=== PATIENT | female | born 1990 | race African-American/Black ===

== ENCOUNTER 2017-03-07 08:11 | Emergency (ER) | payer MEDICAID ==
[~2017-03-07] VITALS: Ht 162.6 cm; Wt 72.0 kg
[~2017-03-07 08:11] MED LIST: FERR324T4 PO
[2017-03-07 08:15] VITALS: BP 166/92; PULSE 91; RESP 16; TEMP 98.6; O2SAT 100
--- NOTE | 2017-03-07 08:21 | PD ---
HPI . possible FB in left ear Chief Complaint: ENT Complaint Time Seen by Provider: 08:21 Travel History International Travel<30 days: No Contact w/Intl Traveler<30days: No Traveled to known affect area: No History of Present Illness HPI 26 yr old female here stating she thinks she has had the backing of an earring stuck in her ear for 3 mts. She tells me it occasionally causes pain. She denies any drainage, cold or flu like symptoms. PFSH Past Medical History Autoimmune Disease: No Blood Disorders: No Anxiety: No Depression: No Cardiovascular Problems: No Diminished Hearing: No Gastrointestinal Disorders: No Genitourinary: No Hypertension: Yes (WHEN SHE WAS WITH HER FIRST BABY) Musculoskeletal: No Neurologic: No Psychiatric: No Respiratory: No Immunizations Current: No Sickle Cell Disease: Yes ?: : 2 Para: 1 Past Surgical History Other Surgery: No Social History Alcohol Use: No Tobacco Use: No Substance Use: No Allergies-Medications (Allergen,Severity, Reaction): Coded Allergies: No Known Allergies (Verified , 03/07/17) Reported Meds & Prescriptions Reported Meds & Active Scripts Active No Active Prescriptions or Reported Medications Review of Systems General / Constitutional: No: Fever Eyes: No: Visual changes HENT: Positive: Other (possible fb in ear), No: Headaches Cardiovascular: No: Chest Pain or Discomfort Respiratory: No: Shortness of Breath Gastrointestinal: No: Abdominal Pain Genitourinary: No: Dysuria Musculoskeletal: No: Pain Skin: No Rash Neurologic: No: Weakness Psychiatric: No: Depression Endocrine: No: Polydipsia Hematologic/Lymphatic: No: Easy Bruising Physical Exam Narrative GENERAL: AAO x 3, no acute distress, Well-nourished, well-developed patient. SKIN: Warm and dry. No visible rashes or bruising. HEAD: Normocephalic and atraumatic. EYES: No scleral icterus. No injection or drainage. EOM intact, PERRLA ENT: No nasal drainage noted. Mucous membranes pink. Airway patent. Right TM with mild cerumen, left TM no gross abnormality. There is no visualized foreign body on examination. No tenderness to palpation of the tragus bilaterally. NECK: Supple, trachea midline. No JVD. No lymphadenopathy CARDIOVASCULAR: Regular rate and rhythm without murmurs, gallops, or rubs. RESPIRATORY: Breath sounds equal bilaterally. No accessory muscle use. No rhonchi or rales. GASTROINTESTINAL: Visual inspection is normal EXTREMITIES: No cyanosis or edema. BACK: No obvious deformity. NEURO: CN II-12 intact, PSYCH: AAO x 3, normal affect. Data Data Last Documented VS Vital Signs Date Time Temp Pulse Resp B/P Pulse Ox O2 Delivery O2 Flow Rate FiO2 03/07/17 08:15 98.6 91 16 166/92 100 Room Air MDM Medical Decision Making Medical Screen Exam Complete: Yes Emergency Medical Condition: Yes Medical Record Reviewed: Yes Differential Diagnosis fb in ear, OM, OE, Narrative Course 26-year-old female here with possible foreign body in her left ear. I've done a thorough examination and there is no gross abnormalities with her bilateral ears. I've explained this to her and recommend she follow-up with her primary care provider. We briefly discussed referral to hearings reporter. Patient verbalized understanding of instructions, questions were answered, and thanked me for their care. I advised them if their condition worsens, please return to the nearest emergency room for further care. Diagnosis Primary Impression: Irritation of left ear Patient Instructions: General Instructions Additional Instructions: I could not see any foreign body in your ear. Please follow up with your primary care provider. You may benefit from an ear, nose, and throat consult. Med/Other Pt SpecificInfo: No Change to Meds Scripts No Active Prescriptions or Reported Meds Disposition: 01 DISCHARGE HOME Condition: Stable Leslee Elizondo Mar 07, 2017 08:21
[2017-03-07 08:33] VITALS: BP 140/81; TEMP 98
[2017-03-08] MEDS ORDERED: TRICTAB PO (18:16)
[2017-03-14] MEDS ORDERED: AUGM875T3 PO (11:52)
== END 2017-03-07 08:40 | disposition home or self-care (01) ==
LOC: NEPK 08:36
DX: H92.02 Otalgia, left ear (principal); I10 Essential (primary) hypertension
CPT/HCPCS: 99281

== ENCOUNTER 2017-03-17 12:40 | Emergency (ER) | payer MEDICAID ==
[~2017-03-17] VITALS: Ht 162.6 cm; Wt 70.0 kg
[~2017-03-17 12:40] MED LIST changes: +AUGM875T3 PO; -FERR324T4 PO; +TRICTAB PO
[2017-03-17 12:44] VITALS: BP 149/83; PULSE 117; RESP 18; TEMP 99.4; O2SAT 97
--- NOTE | 2017-03-17 13:00 | PD ---
HPI Chief Complaint: GI Complaint Time Seen by Provider: 13:00 Travel History International Travel<30 days: No Contact w/Intl Traveler<30days: No Traveled to known affect area: No History of Present Illness HPI 26-year-old Afro-[place] female presents the emergency department with several day history of abdominal discomfort and nausea and vomiting after eating. Patient's last MRSA. Was January 29 and she feels she is probably 6-7 weeks . Patient describes her pain is generalized in the abdomen with localized right upper quadrant tenderness. She denies diarrhea or constipation. She denies urinary symptoms although her urine is darker than normal. She denies pain with urination. She denies vaginal symptoms of discharge or spotting. She has no CVA tenderness. She denies fever, chills, or chest pain or shortness of breath. This is her third child. She states the pain comes and goes and is worse after she eats. She has no history of abdominal surgery prior to this visit. She has no known drug allergies. PFSH Past Medical History Medical History: Denies Significant Hx Autoimmune Disease: No Blood Disorders: No Anxiety: No Depression: No Cardiovascular Problems: No Diminished Hearing: No Gastrointestinal Disorders: No Genitourinary: No Hypertension: Yes (WHEN SHE WAS WITH HER FIRST BABY) Musculoskeletal: No Neurologic: No Psychiatric: No Respiratory: No Immunizations Current: No Sickle Cell Disease: Yes ?: LMP: 01/29/17 : 2 Para: 1 Past Surgical History Surgical History: No Previous Surgery Other Surgery: No Social History Alcohol Use: No Tobacco Use: No Substance Use: No Allergies-Medications (Allergen,Severity, Reaction): Coded Allergies: No Known Allergies (Verified , 03/17/17) Reported Meds & Prescriptions Reported Meds & Active Scripts Active Augmentin (Amoxicillin-Clavulanate) 875-125 Mg Tab 1 Tab PO BID ( Vit-Ferrous Fumarate) 1 Tab Tab 1 Tab PO DAILY Review of Systems Except as stated in HPI: all other systems reviewed are Neg General / Constitutional: No: Fever, Chills Eyes: No: Visual changes HENT: No: Headaches Cardiovascular: No: Chest Pain or Discomfort Respiratory: No: Shortness of Breath Gastrointestinal: Positive: Nausea, Vomiting, Abdominal Pain, Loss of Appetite , No: Diarrhea, Constipation Genitourinary: Positive: Decreased Urinary Output, No: Urgency, Frequency, Dysuria, Pelvic Pain, Flank Pain, Discharge, Vaginal Bleeding Musculoskeletal: No: Pain Skin: No Rash Neurologic: No: Weakness Psychiatric: No: Depression Endocrine: No: Polydipsia Hematologic/Lymphatic: No: Easy Bruising Physical Exam Narrative GENERAL: Patient appears in no acute distress. SKIN: Warm and dry. Normal color. Normal turgor. HEAD: Atraumatic. Normocephalic. EYES: Pupils equal and round. No scleral icterus. No injection or drainage. ENT: No nasal bleeding or discharge. Mucous membranes pink and moist. Pharynx is clear. Airway is patent NECK: Trachea midline. Supple nontender. CARDIOVASCULAR: Regular rate and rhythm. RESPIRATORY: No accessory muscle use. Clear to auscultation. Breath sounds equal bilaterally. GASTROINTESTINAL: Abdomen soft, mild to moderate right upper quadrant tenderness without guarding, nondistended. No CVA tenderness. No right lower abdominal tenderness or rebound. Hepatic and splenic margins not palpable. MUSCULOSKELETAL: Extremities without clubbing, cyanosis, or edema. No obvious deformities. NEUROLOGICAL: Awake and alert. No obvious cranial nerve deficits. Motor grossly within normal limits. Five out of 5 muscle strength in the arms and legs. Normal speech. PSYCHIATRIC: Appropriate mood and affect; insight and judgment normal. Data Data Last Documented VS Vital Signs Date Time Temp Pulse Resp B/P Pulse Ox O2 Delivery O2 Flow Rate FiO2 03/17/17 12:44 99.4 117 18 149/83 97 Room Air Orders Complete Blood Count With Diff (03/17/17 13:06) Comprehensive Metabolic Panel (03/17/17 13:06) Lipase (03/17/17 13:06) Urinalysis - C+S If Indicated (03/17/17 13:06) Us Abdomen Gallbladder (03/17/17 ) Iv Access Insert/Monitor (03/17/17 13:06) Ecg Monitoring (03/17/17 13:06) Oximetry (03/17/17 13:06) NPO (03/17/17 13:06) Ondansetron Inj (Zofran Inj) (03/17/17 13:15) Sodium Chlor 0.9% 1000 Ml Inj (Ns 1000 M (03/17/17 13:06) Sodium Chloride 0.9% Flush (Ns Flush) (03/17/17 13:15) Us Pelvis (Ques Preg/Ectopic) (03/17/17 13:06) Beta Hcg (Quant/Titer) (03/17/17 13:06) Urine Culture (03/17/17 13:00) Ceftriaxone Inj (Rocephin Inj) (03/17/17 14:00) Labs Laboratory Tests Test 03/17/17 13:00 White Blood Count 9.6 TH/MM3 Red Blood Count 4.29 MIL/MM3 Hemoglobin 12.6 GM/DL Hematocrit 37.4 % Mean Corpuscular Volume 87.2 FL Mean Corpuscular Hemoglobin 29.4 PG Mean Corpuscular Hemoglobin 33.8 % Concent Red Cell Distribution Width 15.1 % Platelet Count 273 TH/MM3 Mean Platelet Volume 7.8 FL Neutrophils (%) (Auto) 74.6 % Lymphocytes (%) (Auto) 13.0 % Monocytes (%) (Auto) 11.9 % Eosinophils (%) (Auto) 0.3 % Basophils (%) (Auto) 0.2 % Neutrophils # (Auto) 7.2 TH/MM3 Lymphocytes # (Auto) 1.3 TH/MM3 Monocytes # (Auto) 1.1 TH/MM3 Eosinophils # (Auto) 0.0 TH/MM3 Basophils # (Auto) 0.0 TH/MM3 CBC Comment DIFF FINAL Differential Comment Urine Color DARK-YELLOW Urine Turbidity HAZY Urine pH 6.5 Urine Specific [place] 1.043 Urine Protein 100 mg/dL Urine Glucose (UA) TRACE mg/dL Urine Ketones 10 mg/dL Urine Occult Blood NEG Urine Nitrite NEG Urine Bilirubin NEG Urine Urobilinogen 8.0 MG/DL Urine Leukocyte Esterase MOD Urine RBC 8 /hpf Urine WBC 25 /hpf Urine Squamous Epithelial 28 /hpf Cells Urine Mucus MANY /lpf Microscopic Urinalysis Comment CULTURE INDICATED Sodium Level 135 MEQ/L Potassium Level 3.5 MEQ/L Chloride Level 105 MEQ/L Carbon Dioxide Level 18.5 MEQ/L Anion Gap 12 MEQ/L Blood Urea Nitrogen 9 MG/DL Creatinine 0.63 MG/DL Estimat Glomerular Filtration 140 ML/MIN Rate Random Glucose 76 MG/DL Calcium Level 9.3 MG/DL Total Bilirubin 0.3 MG/DL Aspartate Amino Transf 33 U/L (AST/SGOT) Alanine Aminotransferase 34 U/L (ALT/SGPT) Alkaline Phosphatase 78 U/L Total Protein 7.9 GM/DL Albumin 3.6 GM/DL Lipase 114 U/L Human Chorionic Gonadotropin, [address] MIU/ML Quant MDM Medical Decision Making Medical Screen Exam Complete: Yes Emergency Medical Condition: Yes Differential Diagnosis Emesis gravidarum. Urinary tract infection. Gallbladder colic. Narrative Course Patient is medically stable at time of exam. Labs ordered including CBC, CMP, serum hCG and urinalysis. Ultrasound of the pelvis and gallbladder are ordered. CBC is unremarkable. CMP shows slightly low sodium of 135. Otherwise unremarkable. HCG quantitative is 87,912 Urinalysis shows signs of urinary tract infection with moderate leukocyte esterase, 25 WBCs per high-power field and many mucus. Urine is cultured. Patient is given 1000 mg Rocephin IV. Patient is given 1000 miles normal saline bolus as well as 4 mg Zofran IV. Uterus ultrasound shows an 8 week viable intrauterine . Gallbladder ultrasound is unremarkable. Patient will be treated with Keflex 500 mg 3 times a day 7 days per Patient will be given Zofran 4 mg one every 6 hours when necessary nausea vomiting #15. 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 Diagnosis Primary Impression: UTI (urinary tract infection) during Qualified Code: O23.41 - UTI (urinary tract infection) during , first trimester Additional Impression: Nausea and vomiting Qualified Code: R11.2 - Non-intractable vomiting with nausea, unspecified vomiting type Referrals: Crisis Therapist Patient Instructions: Acute Nausea and Vomiting (ED), Dysuria (ED), First Trimester (ED), General Instructions Additional Instructions: CBC is unremarkable. CMP shows slightly low sodium of 135. Otherwise unremarkable. HCG quantitative is 87,912 Urinalysis shows signs of urinary tract infection with moderate leukocyte esterase, 25 WBCs per high-power field and many mucus. Urine is cultured. Patient is given 1000 mg Rocephin IV. Patient is given 1000 miles normal saline bolus as well as 4 mg Zofran IV. Uterus ultrasound shows an 8 week viable intrauterine . Gallbladder ultrasound is unremarkable. Patient will be treated with Keflex 500 mg 3 times a day 7 days per Patient will be given Zofran 4 mg one every 6 hours when necessary nausea vomiting #15. 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 Med/Other Pt SpecificInfo: Prescription(s) given Scripts Ondansetron Odt (Zofran Odt)4 Mg Tab4 Mg SL Q6HR PRN (Nausea/Vomiting) #15 TAB Prov:Laura Hylton DO 03/17/17 Cephalexin (Keflex)500 Mg Vpy147 Mg PO Q8H #21 CAP Prov:HyltonLaura isaacs 03/17/17 Disposition: 01 DISCHARGE HOME Condition: Stable Reynaldo Mittal Mar 17, 2017 13:00
[2017-03-17] MEDS ORDERED: SODIUM CHLOR 0.9% 1000 ML INJ 1,000 ML IV SCH (13:06)
[2017-03-17] MEDS ORDERED: SODIUM CHLORIDE 0.9% FLUSH 10 ML FLUSH IV FLUSH PRN (13:15)
[2017-03-17] MEDS ORDERED: ONDANSETRON HCL 4 MG/2 ML VIAL IVP ONE (13:15)
[2017-03-17 13:34] LABS: AUTOMATED NEUTROPHIL # 7.2 TH/MM3 (1.8-7.7); BASOPHIL % 0.2 % (0.0-2.0); EOSINOPHIL % 0.3 % (0.0-4.0); HEMATOCRIT 37.4 % (35.0-46.0); HEMO FLAGS DIFF FINAL; LYMPHOCYTE # 1.3 TH/MM3 (1.0-4.8); MEAN CELL VOLUME 87.2 FL (80.0-100.0); MEAN CORPUSCULAR HEMOGLOBIN 29.4 PG (27.0-34.0); MEAN CORPUSCULAR HGB CONC 33.8 % (32.0-36.0); MONO % 11.9 % (0.0-8.0); NEUT % 74.6 % (16.0-70.0); PLATELET COUNT 273 TH/MM3 (150-450); RED BLOOD COUNT 4.29 MIL/MM3 (4.00-5.30); RED CELL DISTRIBUTION WIDTH 15.1 % (11.6-17.2); WHITE BLOOD COUNT 9.6 TH/MM3 (4.0-11.0)
[2017-03-17 13:39] LABS: ALT (GPT) 34 U/L (10-53); ANION GAP 12 MEQ/L (5-15); AST (GOT) 33 U/L (15-37); BICARBONATE 18.5 MEQ/L (21.0-32.0); BLOOD UREA NITROGEN 9 MG/DL (7-18); BLOOD, URINE NEG (NEG); CHLORIDE 105 MEQ/L (98-107); COMMENT (UR) CULTURE INDICATED; CULTURE IF INDICATED CULTURE INDICATED; GLOMERULAR FILTRATION RATE 140 ML/MIN (>89); GLUCOSE,URINE TRACE mg/dL (NEG); KETONE, URINE 10 mg/dL (NEG); MUCUS URINE MANY /lpf (OCC); NITRITE,URINE NEG (NEG); PH, URINE 6.5 (5.0-8.5); POTASSIUM 3.5 MEQ/L (3.5-5.1); SODIUM (NA) 135 MEQ/L (136-145); SQUAMOUS EPITHELIAL CELL URINE 28 /hpf (0-5); URINE COLOR DARK-YELLOW (YELLW/STRAW)
[2017-03-17 13:56] LABS: ALKALINE PHOSPHATASE 78 U/L (45-117); BETA HCG QUANT 87912 MIU/ML (0-5); TOTAL BILIRUBIN ADULT 0.3 MG/DL (0.2-1.0)
[2017-03-17] MEDS ORDERED: cefTRIAXone INJ 1,000 MG in SODIUM CHLORIDE 0.9% INJ 100 ML IV ONE (14:00)
--- NOTE | 2017-03-17 14:04 | RADRPT ---
EXAM DATE/TIME: 03/17/2017 13:16 [facility] COMPARISON: No previous studies available for comparison. INDICATIONS : Right upper quandrant pain. MEDICAL HISTORY : Gestational hypertension. Nausea. Vomiting. SURGICAL HISTORY : None. ENCOUNTER: Initial ACUITY: 1 day PAIN SCORE: 0/10 LOCATION: Right upper quadrant MEASUREMENTS: LIVER: 14.7 cm length COMMON DUCT: Non-visualized RIGHT KIDNEY: 10.8 x 3.5 x 3.2 cm FINDINGS: LIVER: Normal echotexture without focal lesion or ductal dilatation. COMMON DUCT: No intraluminal mass or stone visualized. GALLBLADDER: Contains no stones, demonstrates no wall thickening or pericholecystic fluid. PANCREAS: The visualized portions are within normal limits. RIGHT KIDNEY: No evidence of hydronephrosis, stone, or mass. CONCLUSION: Negative for source of pain. Zechariah Rosas MD FACR on March 17, 2017 at 14:02 Board Certified Radiologist. This report was verified electronically.
--- NOTE | 2017-03-17 14:12 | RADRPT ---
EXAM DATE/TIME: 03/17/2017 13:25 [facility] COMPARISON: No previous studies available for comparison. INDICATIONS : Pelvic pain. LAB(S): Beta-hC MEDICAL HISTORY : Gestational hypertension. Nausea. Vomiting. SURGICAL HISTORY : None. ENCOUNTER: Initial ACUITY: 1 day PAIN SCORE: 3/10 LOCATION: Bilateral pelvis MEASUREMENTS: UTERUS: 9.9 x 8.2 x 7.0 cm ENDOMETRIAL STRIPE: 1 mm RIGHT OVARY: 2.6 x 1.5 x 1.9 cm LEFT OVARY: 4.4 x 3.5 x 3.5 cm CROWN RUMP LENGTH: 1.6 = 8 WKS 0 DAYS FHR: 157 BPM FINDINGS: UTERUS: There is 8 viable intrauterine corresponding to 8 week gestation. Small apparent fibroid i s noted. RIGHT OVARY: Ovary contains no mass or significant cystic lesion. LEFT OVARY: There are 2 cysts in the left ovary largest measuring 3 cm. MISCELLANEOUS: No free fluid. CONCLUSION: Viable intrauterine 8 weeks gestation. Zechariah Rosas MD FACR on March 17, 2017 at 14:08 Board Certified Radiologist. This report was verified electronically.
[2017-03-17] MEDS ORDERED: ZOFR4TAB3 SL (14:34)
[2017-03-17] MEDS ORDERED: CEPH-460 PO (14:34)
[2017-03-17 15:38] VITALS: BP 124/78; PULSE 100; RESP 18; O2SAT 97
== END 2017-03-17 17:51 | disposition home or self-care (01) ==
LOC: NEPE 12:40
DX: O23.41 Unspecified infection of urinary tract in pregnancy, first trimester (principal); O21.9 Vomiting of pregnancy, unspecified; Z3A.08 8 weeks gestation of pregnancy
CPT/HCPCS: 76700; 76705; 80053; 81001; 83690; 84702; 85025; 87086; 96361; 96365; 96375; 99285; J0696; J2405; J7030

== ENCOUNTER → 2017-05-15 | Outpatient (CLI) | payer MEDICAID ==
[~2017-05-15] MED LIST changes: -AUGM875T3 PO
== END ==
LOC: HPND 10:49
PROVIDERS: ATTEND Family Medicine
DX: Z36 Encounter for antenatal screening of mother (principal); Z3A.10 10 weeks gestation of pregnancy
CPT/HCPCS: 76805

== ENCOUNTER 2017-08-31 17:32 | Emergency (ER) | payer MEDICAID ==
[~2017-08-31 17:32] MED LIST changes: +CEPH-460 PO
--- NOTE | 2017-08-31 18:38 | PD ---
HPI Chief Complaint abdominal pain; concern for contractions Date Seen: Aug 31, 2017 Time Seen: 18:15 Travel History International Travel<30 Days: No Contact w/Intl Traveler<30Days: No History of Present Illness HPI Ms. García is a 26 yo at 32 1/7 weeks (PRANAY 10/25/2017 using first ) who presents with complaint of lower abdominal pain associated with lower back pain. Patient reports that her pain has been present since last night; she describes it as intermittent pains lasting 5 minutes at a time. Pains are in lower abdominal area and occur approximately every 1015 minutes. Patient thinks that these pains have been getting stronger since last night. Patient reports normal movement. Patient does not report any vaginal bleeding or vaginal discharge. Patient does not report any urinary frequency or pain with urination in association with her symptoms. Patient does not report any fevers. No chest pain, shortness of breath, nausea/vomiting, or abnormal bowel movements. Patient reports benign course. Per EMR review, patient last saw Dr. Verdugo at 29 weeks gestation; patient given Keflex for suggested UTI on dipstick urinalysis. Patient had normal ultrasound at 22 weeks gestation. labs reviewed: O + blood. No concern for anemia. No concern for bloodborne infectious diseases. GC/C negative. Weeks Gestation: 32 Para: 2 : 3 History Past Medical History Medical History: Denies Significant Hx Obstetric History Obstetric History Past Surgical History Surgical History: No Previous Surgery Family History Family History: Negative Social History Alcohol Use: No Tobacco Use: No Substance Abuse: No Allergies-Medications (Allergen,Severity, Reaction): Coded Allergies: No Known Allergies (Verified Adverse Reaction, Unknown, 08/15/17) Home Meds Active Scripts Cephalexin (Keflex) 500 Mg Capsule, 500 MG PO TID for Infection, #21 CAP 0 Refills Prov:Gary Verdugo MD, R3 08/15/17 Vit-Ferrous Fumarate () 1 Tab Tab, 1 TAB PO DAILY for Nutritional Supplement, #30 TAB 8 Refills Prov:Franco Iyer MD 03/08/17 Review of Systems General / Constitutional: No: Fever, Chills Eyes: No: Blurred Vision HENT: No: Headaches Cardiovascular: No: Chest Pain or Discomfort Respiratory: No: Short of Breath Gastrointestinal: Abdominal Pain, No: Nausea, Vomiting Genitourinary: No: Urgency, Frequency Skin: No Rash, No Itching Neurologic: No: Weakness, Dizziness Psychiatric: No: Anxiety, Depression, Suicidal Ideations Physical Exam BP 137/94 HR 94 T99.4F R 16 Narrative GENERAL: Well-nourished, well-developed patient. SKIN: Warm and dry. HEAD: Normocephalic and atraumatic. EYES: No scleral icterus. No injection or drainage. CARDIOVASCULAR: Regular rate and rhythm without murmurs. Normal perfusion RESPIRATORY: CTAB; normal rate ABDOMEN/GI: Abdomen soft, non-tender, bowel sounds present, no rebound, no guarding Gravid EXTREMITIES: No cyanosis or edema. NEUROLOGICAL: Awake and alert. Motor and sensory function grossly within normal limits GENITOURINARY: per nursing staff External Genitalia: intact and normal in appearance Cervix: closed, thick, long Dilatation: o Effacement: 0% Station: -3 Membranes: Intact Uterine Contractions: None FHT's: Category: 1 Baseline: 150 Reactive: Y Variability: Moderate Decels: None MDM Medical Record Reviewed: Yes Narrative Course / MDM 26 yo at 32 1/7 weeks (PRANAY 10/25/2017 using first US) who presents with complaint of lower abdominal pain associated with lower back pain. -Category 1 rhythm -Cervix closed, non-effaced, -2 station -No contractions on CTG -Dipstick UA with slight leukocyte esterase; not suspicious for UTI -Mild BP elevation- BP 133/97 Plan: -Discussed with patient that due to lack of contractions on monitoring or cervical dilation, she was likely not in labor at this time. Patient's reassuring urinalysis was also suggestive that her abdominal pain is likely due to ligamentous strains/other musculoskeletal etiology. Recommended to patient discharge home and follow-up with PCP Dr. Iyre -Will send Dr. Iyer communication regarding her visit here so that he can follow-up as needed -Patient instructed to return to OB ED with any worsening or nonresolving pain; patient also counselled regarding rest and fluid hydration at home Diagnosis Diagnosis: Primary Impression: Abdominal pain affecting Additional Impression: 32 weeks gestation of Disposition: 01 DISCHARGE HOME Condition: Stable Patient Instructions: Abdominal Pain in (ED), General Instructions, Early Labor Signs (ED) Edmond Stephen MD, R3 Aug 31, 2017 18:38
== END 2017-08-31 19:17 | disposition home or self-care (01) ==
LOC: HOBED 17:32
DX: O26.893 Other specified pregnancy related conditions, third trimester (principal); R10.9 Unspecified abdominal pain; Z3A.32 32 weeks gestation of pregnancy
CPT/HCPCS: 59025

== ENCOUNTER 2017-09-19 10:45 | Inpatient (IN) | payer MEDICAID ==
[~2017-09-19] VITALS: Ht 149.9 cm; Wt 73.0 kg
[2017-09-19] VITALS (41 sets, daily range): BP systolic 135–167; BP diastolic 81–115; PULSE 71–100; RESP 16–19; TEMP 98.2–98.7
--- NOTE | 2017-09-19 11:26 | PD ---
HPI Chief Complaint abdominal pain Date Seen: Sep 19, 2017 Time Seen: 11:12 Travel History International Travel<30 Days: No Contact w/Intl Traveler<30Days: No History of Present Illness HPI 26 y/o at 34/2 weeks presents with abdominal pain/cramping this morning. She states around 7-8am this morning, felt some cramping in her groin. She also reports some decreased movement last night as well, but improved this morning. Denies any vaginal bleeding, loss of fluids, contractions. Otherwise, reports occasional headache, but no other symptoms. Describes the pain as intermittent, comes and goes. Denies any changes in vision , RUQ pain, dysuria, leg pain/swelling, chest pain, SOB. No problems during this . Weeks Gestation: 34 Para: 3 : 4 History Past Medical History Medical History: Denies Significant Hx Obstetric History Obstetric History at 39w 2013- at 40w 2016- at 40w Past Surgical History Surgical History: No Previous Surgery Family History Family History: Negative Social History Alcohol Use: No Tobacco Use: No Substance Abuse: No Allergies-Medications (Allergen,Severity, Reaction): Coded Allergies: No Known Allergies (Verified Adverse Reaction, Unknown, 08/15/17) Home Meds Active Scripts Cephalexin (Keflex) 500 Mg Capsule, 500 MG PO TID for Infection, #21 CAP 0 Refills Prov:Gary Verdugo MD, R3 08/15/17 Vit-Ferrous Fumarate () 1 Tab Tab, 1 TAB PO DAILY for Nutritional Supplement, #30 TAB 8 Refills Prov:Franco Iyer MD 03/08/17 Review of Systems General / Constitutional: Weight Gain, No: Fever, Weight Loss, Chills Eyes: No: Blurred Vision, Visual changes HENT: Headaches, No: Lightheadedness Cardiovascular: No: Irregular Rhythm, Chest Pain or Discomfort, Palpitations Respiratory: No: Cough, Short of Breath Gastrointestinal: No: Nausea, Vomiting, Diarrhea, Abdominal Pain Genitourinary: Pelvic Pain, No: Urgency, Frequency, Dysuria, Discharge, Vaginal Bleeding Musculoskeletal: No: Limited ROM, Weakness, Cramping Skin: No Rash, No Itching Neurologic: No: Weakness, Dizziness, Syncope Psychiatric: No: Anxiety, Depression Physical Exam Narrative GENERAL: Well-nourished, well-developed patient. SKIN: Warm and dry. HEAD: Normocephalic and atraumatic. EYES: No scleral icterus. No injection or drainage. ENT: No nasal drainage noted. Mucous membranes pink. Airway patent. NECK: Supple, trachea midline. No JVD. CARDIOVASCULAR: Regular rate and rhythm without murmurs, gallops, or rubs. RESPIRATORY: Breath sounds equal bilaterally. No accessory muscle use. ABDOMEN/GI: Abdomen soft, non-tender, bowel sounds present, no rebound, no guarding Gravid to 34 weeks size GENITOURINARY: External Genitalia: intact and normal in appearance Cervix: thick,high Dilatation: 0 Effacement: 0 Station: -3 Presentation: vertex Membranes: intact Uterine Contractions: none FHT's: Category: 1 Baseline: 150 Reactive: yes Variability: moderate Decels: 1 early EXTREMITIES: No cyanosis or edema. BACK: Nontender without obvious deformity. No CVA tenderness. NEUROLOGICAL: Awake and alert. Motor and sensory grossly within normal limits. Five out of 5 muscle strength in all muscle groups. Normal speech. Data Data Vital Signs Reviewed: Yes Orders Orders Vital Signs (Adult) .ON ADMISSION (09/19/17 11:14) ^ Labor Status (09/19/17 11:14) ^ Non Stress Test (09/19/17 11:14) Urinalysis - C+S If Indicated (09/19/17 11:15) Cbc No Diff, Includes Plts (09/19/17 11:15) Comprehensive Metabolic Panel (09/19/17 11:15) Uric Acid (09/19/17 11:15) Ldh Serum (09/19/17 11:15) Creatinine, Random Urine (09/19/17 11:15) [facility] Medical Record Reviewed: Yes Interpretation(s) 26 y/o at 34/2 weeks presents with abdominal cramping. Category 1 FHT Cervical exam: 0/0/-3 BP 152/96...147/91 Urine dipstick >300 protein -Monitor BPs -Labs for CBC, CMP, LDH, uric acid -UA & urine protein/cr ratio Narrative Course / MDM Pt with continued elevation of BPs, up to 164/99. Urine protein 300, Plts 252, LDH 231, uric acid 5.3 Urine protein/cr ratio pending 1) Hypertensin in 3rd trimester -Admit to antepartum -Start Mg infusion, may need IV labetalol for continued HTN -Ultrasound with BPP -24 hour urine protein/creatinine -Steroids for lung maturity -Continuous FHT Diagnosis Diagnosis: Primary Impression: Hypertension affecting in third trimester Franco Iyer MD Sep 19, 2017 11:26
[2017-09-19 12:08] LABS: HEMATOCRIT 31.9 % (35.0-46.0); HEMOGLOBIN 10.8 GM/DL (11.6-15.3); MEAN CELL VOLUME 83.2 FL (80.0-100.0); MEAN CORPUSCULAR HEMOGLOBIN 28.1 PG (27.0-34.0); MEAN CORPUSCULAR HGB CONC 33.8 % (32.0-36.0); MEAN PLATELET VOLUME 8.5 FL (7.0-11.0); PLATELET COUNT 252 TH/MM3 (150-450); RED BLOOD COUNT 3.84 MIL/MM3 (4.00-5.30); RED CELL DISTRIBUTION WIDTH 14.1 % (11.6-17.2)
[2017-09-19 12:16] LABS: BACTERIA, URINE OCC /hpf; BLOOD, URINE SMALL (NEG); GLUCOSE,URINE NEG (NEG); HYALINE CAST, URINE 2 /lpf (RARE); KETONE, URINE NEG (NEG); MUCUS URINE MANY /lpf (OCC); NITRITE,URINE NEG (NEG); PH, URINE 6.5 (5.0-8.5); SQUAMOUS EPITHELIAL CELL URINE 6 /hpf (0-5); URINE COLOR YELLOW (YELLW/STRAW); URINE LEUKOCYTE ESTERASE SMALL (NEG)
[2017-09-19 12:17] LABS: BILIRUBIN, URINE NEG (NEG)
[2017-09-19 12:31] LABS: ALBUMIN 2.6 GM/DL (3.4-5.0); AST (GOT) 17 U/L (15-37); BICARBONATE 19.5 MEQ/L (21.0-32.0); BLOOD UREA NITROGEN 15 MG/DL (7-18); CALCIUM 8.3 MG/DL (8.5-10.1); CHLORIDE 106 MEQ/L (98-107); GLOMERULAR FILTRATION RATE 124 ML/MIN (>89); GLUCOSE,RANDOM 67 MG/DL (74-106); SODIUM (NA) 136 MEQ/L (136-145)
[2017-09-19 12:32] LABS: ALT (GPT) 16 U/L (10-53)
[2017-09-19 12:34] LABS: ALKALINE PHOSPHATASE 99 U/L (45-117); TOTAL BILIRUBIN ADULT 0.2 MG/DL (0.2-1.0); TOTAL PROTEIN 6.4 GM/DL (6.4-8.2)
[2017-09-19] MEDS ORDERED: CALCIUM GLUCONATE 10% 1 GM/10 ML VIAL IV PUSH PRN (12:45)
[2017-09-19] MEDS ORDERED: SODIUM CHLORIDE 0.9% FLUSH 10 ML FLUSH IV FLUSH PRN (12:45)
[2017-09-19] MEDS ORDERED: MAGNESIUM SULFATE 4 GM PREMIX 100 ML IV ONE (12:45)
--- NOTE | 2017-09-19 13:04 | HHI.HP ---
History & Physical H&P HPI Chief Complaint abdominal pain Date Seen: Sep 19, 2017 Time Seen: 11:12 Travel History International Travel<30 Days: No Contact w/Intl Traveler<30Days: No History of Present Illness HPI 26 y/o at 34/2 weeks presents with abdominal pain/cramping this morning. She states around 7-8am this morning, felt some cramping in her groin. She also reports some decreased movement last night as well, but improved this morning. Denies any vaginal bleeding, loss of fluids, contractions. Otherwise, reports occasional headache, but no other symptoms. Describes the pain as intermittent, comes and goes. Denies any changes in vision , RUQ pain, dysuria, leg pain/swelling, chest pain, SOB. No problems during this . Weeks Gestation: 34 Para: 3 : 4 History (Limited) History Past Medical History Medical History: Denies Significant Hx Obstetric History Obstetric History at 39w 2012- at 40w 2016- at 40w Past Surgical History Surgical History: No Previous Surgery Family History Family History: Negative Social History Alcohol Use: No Tobacco Use: No Substance Abuse: No Allergies-Medications Allergies-Medications (Allergen,Severity, Reaction): Coded Allergies: No Known Allergies (Verified Adverse Reaction, Unknown, 08/15/17) Home Meds Active Scripts Cephalexin (Keflex) 500 Mg Capsule, 500 MG PO TID for Infection, #21 CAP 0 Refills Prov:Gary Verdugo MD, R3 08/15/17 Vit-Ferrous Fumarate () 1 Tab Tab, 1 TAB PO DAILY for Nutritional Supplement, #30 TAB 8 Refills Prov:Franco Iyer MD 03/08/17 ROS Review of Systems General / Constitutional: Weight Gain, No: Fever, Weight Loss, Chills Eyes: No: Blurred Vision, Visual changes HENT: Headaches, No: Lightheadedness Cardiovascular: No: Irregular Rhythm, Chest Pain or Discomfort, Palpitations Respiratory: No: Cough, Short of Breath Gastrointestinal: No: Nausea, Vomiting, Diarrhea, Abdominal Pain Genitourinary: Pelvic Pain, No: Urgency, Frequency, Dysuria, Discharge, Vaginal Bleeding Musculoskeletal: No: Limited ROM, Weakness, Cramping Skin: No Rash, No Itching Neurologic: No: Weakness, Dizziness, Syncope Psychiatric: No: Anxiety, Depression Physical Exam Physical Exam Narrative GENERAL: Well-nourished, well-developed patient. SKIN: Warm and dry. HEAD: Normocephalic and atraumatic. EYES: No scleral icterus. No injection or drainage. ENT: No nasal drainage noted. Mucous membranes pink. Airway patent. NECK: Supple, trachea midline. No JVD. CARDIOVASCULAR: Regular rate and rhythm without murmurs, gallops, or rubs. RESPIRATORY: Breath sounds equal bilaterally. No accessory muscle use. ABDOMEN/GI: Abdomen soft, non-tender, bowel sounds present, no rebound, no guarding Gravid to 34 weeks size GENITOURINARY: External Genitalia: intact and normal in appearance Cervix: thick,high Dilatation: 0 Effacement: 0 Station: -3 Presentation: vertex Membranes: intact Uterine Contractions: none FHT's: Category: 1 Baseline: 150 Reactive: yes Variability: moderate Decels: 1 early EXTREMITIES: No cyanosis or edema. BACK: Nontender without obvious deformity. No CVA tenderness. NEUROLOGICAL: Awake and alert. Motor and sensory grossly within normal limits. Five out of 5 muscle strength in all muscle groups. Normal speech. Data Data Data Vital Signs Reviewed: Yes Orders Orders Vital Signs (Adult) .ON ADMISSION (09/19/17 11:14) ^ Labor Status (09/19/17 11:14) ^ Non Stress Test (09/19/17 11:14) Urinalysis - C+S If Indicated (09/19/17 11:15) Cbc No Diff, Includes Plts (09/19/17 11:15) Comprehensive Metabolic Panel (09/19/17 11:15) Uric Acid (09/19/17 11:15) Ldh Serum (09/19/17 11:15) Creatinine, Random Urine (09/19/17 11:15) [facility] Medical Record Reviewed: Yes Interpretation(s) 26 y/o at 34/2 weeks presents with abdominal cramping. Category 1 FHT Cervical exam: 0/0/-3 BP 152/96...147/91 Urine dipstick >300 protein -Monitor BPs -Labs for CBC, CMP, LDH, uric acid -UA & urine protein/cr ratio Narrative Course / MDM Pt with continued elevation of BPs, up to 164/99. Urine protein 300, Plts 252, LDH 231, uric acid 5.3 Urine protein/cr ratio pending 1) Hypertensin in 3rd trimester -Admit to antepartum -Start Mg infusion, may need IV labetalol for continued HTN -Ultrasound with BPP -24 hour urine protein/creatinine -Steroids for lung maturity -Continuous FHT Diagnosis Diagnosis: Primary Impression: Hypertension affecting in third trimester Franco Iyer MD Sep 19, 2017 13:04
[2017-09-19] MEDS: BETAMETHASONE SOD PHOS/ACETATE SUSP 30 MG/5 ML VIAL IM SCH (13:17)
[2017-09-19] MEDS: LACTATED RINGER'S 1000 ML INJ 1,000 ML IV SCH (13:17)
[2017-09-19] MEDS: MAGNESIUM SULFATE 40 GM PREMIX 1,000 ML IV SCH (13:34)
--- NOTE | 2017-09-19 17:50 | HHI.PR ---
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 Work up is in progress for preeclampsia but the elevated blood pressure, proteinuria on dip, abnormal prot/creat ratio, and IUGR on ultrasound point to severe preeclampsia. Patient has received betamethasone today with 2nd dose schedule for tomorrow. Plan on induction of labor following 2nd dose if blood pressures are tolerable. Will plan induction sooner for elevated blood pressure that requires antihypertensive treatment. Aida Vale MD Sep 19, 2017 17:50
[2017-09-19] MEDS: ACETAMINOPHEN 325 MG TAB PO PRN (20:30)
[2017-09-19] MEDS ORDERED: LABETALOL HCL 100 MG/20 ML VIAL IV PUSH PRN ×2 (22:15→22:30)
[2017-09-20] VITALS (41 sets, daily range): BP systolic 124–163; BP diastolic 66–98; PULSE 77–156; RESP 16–18; TEMP 97.6–98.4
[2017-09-20] MEDS: LACTATED RINGER'S 1000 ML INJ 1,000 ML IV SCH ×3 (01:51→21:31)
[2017-09-20] MEDS: ACETAMINOPHEN 325 MG TAB PO PRN (02:20)
[2017-09-20 05:58] LABS: HEMOGLOBIN 11.3 GM/DL (11.6-15.3); MEAN CELL VOLUME 83.4 FL (80.0-100.0); MEAN CORPUSCULAR HEMOGLOBIN 27.7 PG (27.0-34.0); MEAN CORPUSCULAR HGB CONC 33.2 % (32.0-36.0); MEAN PLATELET VOLUME 8.3 FL (7.0-11.0); PLATELET COUNT 271 TH/MM3 (150-450); RED BLOOD COUNT 4.08 MIL/MM3 (4.00-5.30); RED CELL DISTRIBUTION WIDTH 13.8 % (11.6-17.2); WHITE BLOOD COUNT 13.3 TH/MM3 (4.0-11.0)
[2017-09-20 06:20] LABS: ALBUMIN 2.5 GM/DL (3.4-5.0); BICARBONATE 19.8 MEQ/L (21.0-32.0); CREATININE 0.62 MG/DL (0.50-1.00); TOTAL BILIRUBIN ADULT 0.2 MG/DL (0.2-1.0); TOTAL PROTEIN 6.6 GM/DL (6.4-8.2)
[2017-09-20 06:41] LABS: CALCIUM-PROTEIN CORRECTED 7.3 MG/DL (8.5-10.1)
--- NOTE | 2017-09-20 08:23 | PD.OB.ANTE ---
Subjective Interval History Pt seen and examined this morning. Denies any new complaints this morning. Denies any VB, LOF, CTX. Endorses good movement. States she had some headaches last night, but improved this morning. Denies any changes in vision this morning. Denies any abdominal pain, leg pain/swelling. Denies any fever/chills, chest pain, SOB, dysuria. Antepartum ROS: Reports: movement normal, Denies: New complaints, Loss of fluid, Vaginal bleeding, Contractions Objective Vital Signs Vital Signs Date Time Temp Pulse Resp B/P (MAP) Pulse Ox O2 Delivery O2 Flow Rate FiO2 09/20/17 08:00 90 132/70 (90) 09/20/17 07:28 97.6 16 09/20/17 07:00 91 124/78 (93) 09/20/17 06:00 96 132/87 (102) 09/20/17 05:00 98.0 09/20/17 04:19 18 09/20/17 04:00 90 132/71 (91) 09/20/17 03:01 16 09/20/17 03:00 84 144/82 (102) 09/20/17 02:57 18 09/20/17 02:00 88 136/71 (92) 09/20/17 01:26 16 09/20/17 01:00 89 145/89 (107) 09/20/17 00:19 97.8 09/20/17 00:11 18 09/20/17 00:00 89 136/90 (105) 09/19/17 23:02 18 09/19/17 22:34 88 145/92 (109) 09/19/17 22:04 19 09/19/17 22:00 82 160/98 (118) 09/19/17 21:43 18 09/19/17 21:00 86 153/94 (113) 09/19/17 20:33 98.2 18 09/19/17 20:00 16 09/19/17 20:00 94 146/88 (107) 09/19/17 19:00 88 148/91 (110) 09/19/17 18:00 82 147/92 (110) 09/19/17 17:00 75 148/89 (108) 09/19/17 16:00 87 135/82 (99) 09/19/17 15:01 76 141/81 (101) 09/19/17 15:00 98.7 09/19/17 14:35 88 09/19/17 14:30 91 09/19/17 14:25 87 09/19/17 14:20 89 09/19/17 14:15 91 09/19/17 14:10 85 09/19/17 14:05 86 09/19/17 14:00 90 145/81 (102) 09/19/17 13:55 87 09/19/17 13:50 87 09/19/17 13:45 93 147/85 (105) 09/19/17 13:40 89 09/19/17 13:40 91 147/88 (107) 09/19/17 13:35 88 143/81 (101) 09/19/17 13:30 149/89 (109) 09/19/17 13:30 88 09/19/17 13:25 88 09/19/17 13:25 155/91 (112) 09/19/17 13:20 74 09/19/17 13:20 157/115 (129) 09/19/17 13:16 71 159/88 (111) 09/19/17 13:15 72 09/19/17 13:13 75 163/89 (113) 09/19/17 13:10 74 09/19/17 12:15 77 161/95 (117) 09/19/17 12:00 77 164/99 (120) 09/19/17 11:45 82 147/91 (109) 09/19/17 11:43 88 149/86 (107) 09/19/17 11:30 88 167/92 (117) 09/19/17 11:16 90 154/87 (109) 09/19/17 11:09 100 152/96 (114) Lab & Micro Results Test 09/19/17 11:00 09/19/17 11:24 09/19/17 20:47 09/20/17 05:02 Urine Color YELLOW Urine Turbidity HAZY Urine pH 6.5 Urine Specific [place] 1.034 Urine Protein 300 mg/dL Urine Glucose (UA) NEG mg/dL Urine Ketones NEG mg/dL Urine Occult Blood SMALL Urine Nitrite NEG Urine Bilirubin NEG Urine Urobilinogen 2.0 MG/DL Urine Leukocyte Esterase SMALL Urine RBC 6 /hpf Urine WBC 13 /hpf Urine Squamous Epithelial Cells 6 /hpf Urine Bacteria OCC /hpf Urine Hyaline Casts 2 /lpf Urine Mucus MANY /lpf Microscopic Urinalysis Comment CULTURE INDICATED Urine Random Creatinine 345 MG/DL Urine Random Total Protein 744 MG/DL Urine Protein/Creatinine Ratio 2.16 White Blood Count 10.0 TH/MM3 13.3 TH/MM3 Red Blood Count 3.84 MIL/MM3 4.08 MIL/MM3 Hemoglobin 10.8 GM/DL 11.3 GM/DL Hematocrit 31.9 % 34.0 % Mean Corpuscular Volume 83.2 FL 83.4 FL Mean Corpuscular Hemoglobin 28.1 PG 27.7 PG Mean Corpuscular Hemoglobin Concent 33.8 % 33.2 % Red Cell Distribution Width 14.1 % 13.8 % Platelet Count 252 TH/MM3 271 TH/MM3 Mean Platelet Volume 8.5 FL 8.3 FL Blood Urea Nitrogen 15 MG/DL 11 MG/DL Creatinine 0.70 MG/DL 0.62 MG/DL Random Glucose 67 MG/DL 103 MG/DL Total Protein 6.4 GM/DL 6.6 GM/DL Albumin 2.6 GM/DL 2.5 GM/DL Calcium Level 8.3 MG/DL 7.0 MG/DL Uric Acid 5.3 MG/DL Alkaline Phosphatase 99 U/L 95 U/L Aspartate Amino Transf (AST/SGOT) 17 U/L 14 U/L Alanine Aminotransferase (ALT/SGPT) 16 U/L 17 U/L Lactate Dehydrogenase 231 U/L Total Bilirubin 0.2 MG/DL 0.2 MG/DL Sodium Level 136 MEQ/L 132 MEQ/L Potassium Level 3.9 MEQ/L 4.4 MEQ/L Chloride Level 106 MEQ/L 102 MEQ/L Carbon Dioxide Level 19.5 MEQ/L 19.8 MEQ/L Anion Gap 11 MEQ/L 10 MEQ/L Estimat Glomerular Filtration Rate 124 ML/MIN 143 ML/MIN Group B Streptococcus (PCR) NEGATIVE Protein Corrected Calcium 7.3 MG/DL Date/Time Source Procedure Growth Status 09/19/17 20:47 Genital Genital Region Group B Streptococcus Screen Pending Received 09/19/17 11:00 Urine Clean Catch Urine Culture Pending Received Physical Exam GENERAL: Well-nourished, well-developed patient. CARDIOVASCULAR: Regular rate and rhythm without murmurs, gallops, or rubs. RESPIRATORY: Breath sounds equal bilaterally. No accessory muscle use. ABDOMEN/GI: Abdomen soft, non-tender. Gravid to 35 weeks. GENITOURINARY: Uterine Contractions: none FHT's: Category: 1 Baseline: 130 Reactive: yes Variability: moderate Decels: 1 variable EXTREMITIES: No cyanosis or edema, non-tender, without signs of DVT. Assessment and Plan Problem List: (1) Preeclampsia ICD Codes: O14.90 - Unspecified pre-eclampsia, unspecified trimester Status: Acute Qualifiers: Qualified Codes: O14.93 - Unspecified pre-eclampsia, third trimester Assessment and Plan 26 y/o at 35 weeks admitted for pre-eclampsia BP up to 144/82 overnight BPP 8/8, KRISTAN 8.8, IUGR on ultrasound -Continuous FHT -On Mg infusion, 2g/hr -IV Labetalol PRN high BP -24 hour urine protein/creatinine pending -Steroids for lung maturity, will receive 2nd dose today -Will induce with Cytotec 25mcg after second dose of steroids due to HTN Franco Iyer MD Sep 20, 2017 08:23
[2017-09-20] MEDS: SODIUM CHLORIDE 0.9% FLUSH 10 ML FLUSH IV FLUSH SCH ×2 (08:27→21:00)
[2017-09-20] MEDS: MAGNESIUM SULFATE 40 GM PREMIX 1,000 ML IV SCH (09:47)
[2017-09-20] MEDS: BETAMETHASONE SOD PHOS/ACETATE SUSP 30 MG/5 ML VIAL IM SCH (13:30)
[2017-09-20] MEDS ORDERED: LACTATED RINGER'S 1000 ML INJ 1,000 ML IV PRN (13:31)
[2017-09-20] MEDS ORDERED: SODIUM CHLORID 0.9% 500 ML INJ 500 ML IV PRN (13:45)
[2017-09-20] MEDS ORDERED: MISOPROSTOL 100 MCG TAB VAGINAL ONE (13:45)
[2017-09-20] MEDS ORDERED: LIDOCAINE HCL 1% 50 ML VIAL INFIL PRN (13:45)
[2017-09-20] MEDS ORDERED: CITRIC ACID-SODIUM CITRATE LIQ 30 ML UDC PO SCH (13:45)
[2017-09-20] MEDS ORDERED: OXYTOCIN 30 UNITS-500ML PREMIX 500 ML IV ONE (13:45)
[2017-09-20] MEDS ORDERED: LIDOCAINE HCL 1% 30 ML VIAL I-DERMAL PRN (13:45)
[2017-09-20] MEDS ORDERED: MINERAL OIL 10 ML VIAL TOPICAL PRN (13:45)
[2017-09-20] MEDS ORDERED: ONDANSETRON HCL 4 MG/2 ML VIAL IV PUSH PRN (13:45)
[2017-09-20] MEDS ORDERED: SODIUM CHLOR 0.9% 1000 ML INJ 1,000 ML IV PRN (13:51)
[2017-09-20] MEDS ORDERED: PILL SPLITTER OTHER PRN (14:30)
[2017-09-20] MEDS ORDERED: MISOPROSTOL 25 MCG TAB VAGINAL ONE (15:00)
[2017-09-20] MEDS ORDERED: LIDOCAINE HCL 1% PF 30 ML VIAL OTHER PRN (16:15)
[2017-09-20 16:19] LABS: CREATININE 24 HOUR, URINE 1.44 GM/24HR (0.63-2.50)
--- NOTE | 2017-09-20 17:03 | PD.LABORPN ---
Subjective Subjective Pt resting comfortably in bed. Cytotec given at 3pm. No new symptoms. Denies any contractions. Objective Vital Signs Vital Signs Date Time Temp Pulse Resp B/P (MAP) Pulse Ox O2 Delivery O2 Flow Rate FiO2 09/20/17 16:46 18 09/20/17 16:01 156 150/92 (111) 09/20/17 15:52 86 18 154/98 (116) 09/20/17 14:59 18 09/20/17 14:59 87 139/84 (102) 09/20/17 13:53 18 09/20/17 13:00 88 141/94 (110) 09/20/17 12:44 18 09/20/17 12:00 97 131/71 (91) 09/20/17 11:54 18 09/20/17 11:00 94 139/74 (95) 09/20/17 10:01 94 143/70 (94) 09/20/17 09:04 18 09/20/17 09:01 90 152/94 (113) Objective Pelvic Exam: Dilatation: 0 Effacement: 0 Station: -2 Presentation: vertex Membranes: ruptured Uterine Contractions: none FHT's: Category: 1 Baseline: 140 Reactive: yes Variability: moderate Decels: none Weeks Gestation: 34 Medical induction of labor?: Yes Medical induction start date: Sep 20, 2017 Medical induction start time: 15:00 Assessment/Plan Problem List: (1) Preeclampsia ICD Codes: O14.90 - Unspecified pre-eclampsia, unspecified trimester Status: Acute Qualifiers: Qualified Codes: O14.93 - Unspecified pre-eclampsia, third trimester Assessment and Plan 26 y/o at 35 weeks admitted for pre-eclampsia Category 1 FHT Induction of labor with Cytotec -Continuous FHT -On Mg infusion, 2g/hr -IV Labetalol PRN high BP -Cytotec 25mcg q4H Franco Iyer MD Sep 20, 2017 17:03
[2017-09-20] MEDS: MISOPROSTOL 100 MCG TAB VAGINAL SCH ×2 (19:15→23:15)
[2017-09-21] VITALS (86 sets, daily range): BP systolic 115–178; BP diastolic 67–118; PULSE 66–127; RESP 16–20; TEMP 97.1–98.2; O2SAT 97–100
[2017-09-21] MEDS: MISOPROSTOL 25 MCG TAB VAGINAL SCH ×2 (03:15→07:15)
[2017-09-21] MEDS: LACTATED RINGER'S 1000 ML INJ 1,000 ML IV SCH ×2 (07:28→19:46)
[2017-09-21] MEDS: MAGNESIUM SULFATE 40 GM PREMIX 1,000 ML IV SCH (07:48)
--- NOTE | 2017-09-21 08:49 | PD.LABORPN ---
Subjective Subjective After IV fentanyl patient is comfortable with minimal pain. AROM was performed with clear fluid. IUPC and FSE was placed at 0845. Objective Vital Signs Vital Signs Date Time Temp Pulse Resp B/P (MAP) Pulse Ox O2 Delivery O2 Flow Rate FiO2 09/21/17 08:00 77 147/86 (106) 09/21/17 07:07 18 09/21/17 07:06 98.2 09/21/17 07:00 81 146/91 (109) 09/21/17 06:11 18 09/21/17 06:01 92 147/91 (109) 09/21/17 05:15 18 09/21/17 05:01 78 142/87 (105) 09/21/17 04:15 18 09/21/17 04:01 78 160/94 (116) 09/21/17 03:15 97.7 18 09/21/17 03:00 80 155/89 (111) 09/21/17 02:33 74 156/93 (114) 09/21/17 01:15 97.7 18 Objective Pelvic Exam: Cervix: Dilatation: 3-4cm Effacement: 80 Station: -2 Presentation: vertex Membranes: AROM Uterine Contractions: q3min adequate FHT's: Category: 2 Baseline: 130s Reactive: yes Variability: minimal Decels: recurrent late decels Weeks Gestation: 34 Pt started active labor?: No Medical induction of labor?: Yes Medical induction start date: Sep 20, 2017 Medical induction start time: 15:00 Artificial ROM date: Sep 21, 2017 Artifical ROM time: 08:45 Assessment/Plan Problem List: (1) Preeclampsia ICD Codes: O14.90 - Unspecified pre-eclampsia, unspecified trimester Status: Acute Qualifiers: Qualified Codes: O14.93 - Unspecified pre-eclampsia, third trimester Assessment and Plan 26 y/o at 35 weeks admitted for pre-eclampsia Category 2 FHT with recurrent late decelerations Induction of labor with Cytotec -Continuous FHT with IUPC and FSE in place -On Mg infusion, 2g/hr -IV Labetalol PRN high BP -Will give one dose of Terbutaline 0.25mg SQ to space out contractions and to help with distress Amaris Pavon MD R1 Sep 21, 2017 08:49
[2017-09-21] MEDS ORDERED: TERBUTALINE INJ 1 MG/ML AMP SQ ONE ×2 (09:00→09:45)
[2017-09-21] MEDS: SODIUM CHLORIDE 0.9% FLUSH 10 ML FLUSH IV FLUSH SCH (09:00)
[2017-09-21] MEDS ORDERED: fentaNYL 2MCG-BUPIV 0.125% INJ 100 ML ONE (10:16)
[2017-09-21] MEDS ORDERED: ePHEDrine/NS 25 MG/5 ML SYRINGE ONE (10:16)
[2017-09-21] MEDS ORDERED: OXYTOCIN 30 UNITS-500ML PREMIX 500 ML ONE ×2 (10:39)
--- NOTE | 2017-09-21 10:50 | PD.OB.DELI ---
Weeks gestation: 35 Pt started active labor?: No Medical induction of labor?: Yes Medical induction start date: Sep 20, 2017 Medical induction start time: 15:00 Artificial ROM date: Sep 21, 2017 Artifical ROM time: 08:45 Anesthesia: Epidural Episiotomy: None Vaginal Delivery: Normal Presentation: Occiput anterior Nuchal Cord: None Delayed cord clamping (45 sec): Yes Infant: Female Delivery date: Sep 21, 2017 Delivery time: 10:35 One Minute : 8 Five Minute : 8 Weight: 1625g Placenta: Spontaneous delivery, Intact, 3 vessel cord Laceration: No lacerations Estimated blood loss: <200ml Franco Iyer MD Sep 21, 2017 10:50
[2017-09-21] MEDS ORDERED: OXYTOCIN 30 UNITS-500ML PREMIX 500 ML IV SCH (11:00)
[2017-09-21] MEDS ORDERED: ALUMINUM/MAGNESIUM/SIMETH 30 ML CUP PO PRN (11:00)
[2017-09-21] MEDS ORDERED: ZOLPIDEM TARTRATE 5 MG TAB PO PRN (11:00)
[2017-09-21] MEDS ORDERED: WITCH HAZEL 50%/GLYCERIN 12.5% 40 PAD JAR TOPICAL PRN (11:00)
[2017-09-21] MEDS ORDERED: ONDANSETRON ODT 4 MG TAB PO PRN (11:00)
[2017-09-21] MEDS ORDERED: BENZOCAINE 20% TOPICAL SPRAY 60 ML CAN TOPICAL PRN (11:00)
[2017-09-21] MEDS ORDERED: ACETAMINOPHEN 325 MG TAB PO PRN (11:00)
[2017-09-21] MEDS ORDERED: oxyCODONE/ACETAMINOPHEN 5 MG/325 MG TAB PO PRN (11:00)
[2017-09-21] MEDS ORDERED: SODIUM CHLORIDE 0.9% FLUSH 10 ML FLUSH IV FLUSH PRN (11:00)
[2017-09-21] MEDS ORDERED: LABETALOL HCL 100 MG/20 ML VIAL IV PUSH PRN (12:00)
[2017-09-21] MEDS: IBUPROFEN 800 MG TAB PO PRN ×2 (12:02→21:47)
[2017-09-21] MEDS ORDERED: MEASLES, MUMPS, RUBELLA VACCINE 0.5 ML VIAL SQ ONE (16:00)
[2017-09-21] MEDS ORDERED: DIPHTH/TETANUS/ACEL PERTUSSIS (BOOSTER) 0.5 ML VIAL/PFS IM ONE (16:00)
[2017-09-21] MEDS: oxyCODONE/ACETAMINOPHEN 5 MG/325 MG TAB PO PRN (18:48)
[2017-09-21] MEDS ORDERED: SODIUM CHLORIDE 0.9% FLUSH 10 ML FLUSH IV FLUSH SCH (21:00)
[2017-09-21] MEDS: ACETAMINOPHEN 325 MG TAB PO PRN (21:41)
[2017-09-21] MEDS ORDERED: LABETALOL HCL 100 MG/20 ML VIAL IV SCH (23:30)
[2017-09-22] VITALS (72 sets, daily range): BP systolic 127–183; BP diastolic 70–96; PULSE 66–90; RESP 16–18; TEMP 98.1–98.2; O2SAT 96–100
[2017-09-22] MEDS: MAGNESIUM SULFATE 40 GM PREMIX 1,000 ML IV SCH (02:55)
[2017-09-22] MEDS: oxyCODONE/ACETAMINOPHEN 5 MG/325 MG TAB PO PRN ×3 (03:12→18:13)
--- NOTE | 2017-09-22 08:45 | HHI.OB ---
Subjective Post Day: 1 Remarks day #1. AFVSS overnight. Blood pressure controlled on Mg. Pain minimal. Decreased lochia. Denies dysuria. No breast tenderness. She is feeding the baby via breast/bottle. Appetite good. No nausea or vomiting. Endorses flatus. No bowel movement. Ambulating well. Denies calf pain, shortness of breath, or cough. Otherwise, she is doing well this morning and has no other complaints. (Franco Iyer MD) Objective Vitals/I&O Vital Signs Date Time Temp Pulse Resp B/P (MAP) Pulse Ox O2 Delivery O2 Flow Rate FiO2 09/22/17 06:35 69 98 2/2/18 06:30 72 98 /218 06:25 69 97 /18 06:22 16 2/2/18 06:20 71 98 2/2/18 06:15 71 98 /18 06:10 72 97 09/22/18 06:05 71 96 18 06:00 127/78 (94) 97 18 06:00 71 218 05:55 85 98 2/2/18 05:50 79 97 2/2/18 05:45 84 98 /2/18 05:40 81 97 09/22/18 05:35 72 97 //18 05:30 71 97 /2/18 05:30 16 2/2/18 05:25 97 /2/18 05:25 71 /2/18 05:20 98 /2/18 05:20 73 /2/18 05:15 98 2/18 05:15 70 2/18 05:10 74 98 2/2/18 05:05 69 98 2/2/18 05:00 127/80 (96) 98 2/18 05:00 71 18 04:55 73 98 2/18 04:50 72 98 /2/18 04:45 71 97 /2/18 04:40 72 97 2/2/18 04:35 74 98 2/2/18 04:30 72 97 2/2/18 04:25 75 97 /2/18 04:20 74 97 22/18 04:15 86 98 2/18 04:10 84 98 2/2/18 04:05 74 98 2/2/18 04:04 16 2/2/18 04:00 74 128/82 (97) 97 2/2/18 04:00 90 2/2/18 03:55 74 97 2/2/18 03:50 74 97 2/2/18 03:45 72 97 2/2/18 03:40 72 98 2/2/18 03:35 72 98 2/2/18 03:30 70 98 2/2/18 03:30 18 2/2/18 03:25 99 2/2/18 03:25 68 2/2/18 03:20 68 2/2/18 03:20 99 2/2/18 03:15 72 2/2/18 03:15 100 2/2/18 03:10 99 2/2/18 03:10 67 2/2/18 03:05 66 2/2/18 03:05 99 2/2/18 03:00 99 2/2/18 03:00 66 128/78 (95) 2/2/18 02:55 67 99 2/2/18 02:50 78 100 2/2/18 02:45 76 100 2/2/18 02:35 73 98 2/2/18 02:30 72 98 2/2/18 02:28 18 2/2/18 02:25 76 98 2/2/18 02:20 73 99 2/2/18 02:15 75 99 2/2/18 02:10 85 99 2/2/18 02:05 71 99 2/2/18 02:00 69 131/70 (90) 99 2/2/18 01:55 81 100 2/2/18 01:50 69 100 2/2/18 01:45 76 99 2/2/18 01:40 78 100 2/2/18 01:03 16 2/2/18 01:00 69 139/78 (98) 2/2/18 00:10 18 2/2/18 00:00 68 150/83 (105) 2//18 23:33 67 151/87 (108) 218 23:30 97.1 2/18 23:07 16 2//18 23:04 74 164/90 (114) 2/1/18 23:00 66 160/77 (104) 09/21/17 22:30 18 09/21/17 22:00 72 148/90 (109) 99 09/21/17 21:55 76 99 09/21/17 21:50 86 98 09/21/17 21:45 79 98 09/21/17 21:40 95 99 09/21/17 21:35 78 97 09/21/17 21:30 78 98 09/21/17 21:25 77 98 09/21/17 21:20 75 99 09/21/17 21:10 75 99 09/21/17 21:05 75 99 09/21/17 21:01 16 09/21/17 21:00 76 100 09/21/17 21:00 72 147/78 (101) 09/21/17 20:55 76 100 09/21/17 20:50 80 100 09/21/17 20:45 79 99 09/21/17 20:40 75 100 09/21/17 20:35 88 100 09/21/17 20:30 18 09/21/17 19:30 97.7 09/21/17 19:30 18 09/21/17 19:00 84 150/81 (104) 09/21/17 18:01 75 151/73 (99) 09/21/17 17:30 16 09/21/17 17:30 97.8 09/21/17 17:21 79 149/82 (104) 09/21/17 17:00 78 150/87 (108) 09/21/17 16:30 17 09/21/17 16:01 90 138/87 (104) 09/21/17 15:30 19 09/21/17 15:00 86 123/87 (99) 09/21/17 14:30 17 09/21/17 14:00 80 132/79 (96) 09/21/17 13:10 19 09/21/17 13:00 86 147/94 (111) 09/21/17 12:47 83 153/92 (112) 09/21/17 12:31 127 115/76 (89) 09/21/17 12:25 78 142/73 (96) 09/21/17 12:16 82 159/118 (132) 09/21/17 12:01 88 165/93 (117) 09/21/17 12:00 85 09/21/17 11:55 90 09/21/17 11:50 83 09/21/17 11:46 83 178/91 (120) 09/21/17 11:45 82 09/21/17 11:40 83 09/21/17 11:35 86 09/21/17 11:31 85 147/87 (107) 09/21/17 11:30 85 09/21/17 11:25 82 09/21/17 11:15 153/89 (110) 09/21/17 11:15 81 09/21/17 11:10 90 09/21/17 11:10 159/85 (109) 09/21/17 11:08 97.7 18 09/21/17 11:05 88 09/21/17 11:05 143/87 (105) 09/21/17 11:00 95 09/21/17 11:00 146/81 (102) 09/21/17 10:55 156/103 (120) 09/21/17 10:55 102 09/21/17 10:55 100 09/21/17 10:50 103 149/102 (118) 09/21/17 10:45 104 150/76 (100) 09/21/17 10:40 98 148/88 (108) 09/21/17 10:36 105 158/101 (120) 09/21/17 10:30 96 154/94 (114) 09/21/17 10:08 20 09/21/17 10:07 97.7 09/21/17 10:00 90 128/67 (87) 09/21/17 09:45 18 09/21/17 09:01 83 145/102 (116) Objective Remarks GENERAL: Well-nourished, well-developed patient. CARDIOVASCULAR: Regular rate and rhythm without murmurs, gallops, or rubs. RESPIRATORY: Breath sounds equal bilaterally. No accessory muscle use. ABDOMEN/GI: Abdomen soft, non-tender. Fundus: Firm, non-tender at umbilicus. GENITOURINARY: Light to moderate bleeding. EXTREMITIES: No cyanosis or edema, non-tender, without signs of DVT. Medications and IVs Current Medications Medications (Trade) Dose Ordered Sig/Jeannine Route Start Time Stop Time Status Last Admin (Calcium Gluconate Inj) 1 gm UNSCH PRN IV PUSH 09/19/17 12:45 (Tylenol) 650 mg Q4H PRN PO 09/19/17 20:30 09/20/17 02:20 Lactated Ringer's 1,000 ml @ 125 mls/hr Q8H IV 09/20/17 13:31 09/21/17 19:46 Lactated Ringer's 1,000 ml @ 3,000 mls/hr Q20M PRN IV 09/20/17 13:31 09/21/17 09:45 Sodium Chloride 1,000 ml @ 100 mls/hr Q10H PRN IV 09/20/17 13:51 09/21/17 10:13 (Bicitra Liq) 30 ml WATCHGUARD PO 09/20/17 13:45 09/24/17 13:44 (Zofran Inj) 4 mg Q6H PRN IV PUSH 09/20/17 13:45 (Xylocaine 1% Inj (50 ml)) 10 ml UNSCH X1 PRN INFIL 09/20/17 13:45 09/22/17 13:44 (Muri-Lube Oil) 10 ml UNSCH PRN TOPICAL 09/20/17 13:45 (Pill Splitter) 1 ea UNSCH PRN OTHER 09/20/17 14:30 Magnesium Sulfate 1,000 ml @ 50 mls/hr Q20H IV 09/20/17 15:00 09/22/17 02:55 (NS Flush) 2 ml BID IV FLUSH 09/21/17 21:00 (NS Flush) 2 ml UNSCH PRN IV FLUSH 09/21/17 11:00 (Tylenol) 650 mg Q4H PRN PO 09/21/17 11:00 (Motrin) 800 mg Q8H PRN PO 09/21/17 11:00 09/21/17 21:47 (Percocet 5-325 Mg) 1 tab Q4H PRN PO 09/21/17 11:00 09/22/17 03:12 (Percocet 5-325 Mg) 2 tab Q4H PRN PO 09/21/17 11:00 (Americaine 20% Top Spr) 1 spray Q4H PRN TOPICAL 09/21/17 11:00 (Tucks Pads) 1 applic QID PRN TOPICAL 09/21/17 11:00 (Marly-Colace) 2 tab Q12H PRN PO 09/21/17 11:00 (Ambien) 5 mg HS PRN PO 09/21/17 11:00 (Mag-Al Plus Susp Liq) 15 ml Q8H PRN PO 09/21/17 11:00 (Zofran Odt) 4 mg Q6H PRN PO 09/21/17 11:00 (Franco Iyer MD) Assessment/Plan Problem List: (1) Preeclampsia ICD Codes: O14.90 - Unspecified pre-eclampsia, unspecified trimester Status: Acute Qualifiers: Qualified Codes: O14.93 - Unspecified pre-eclampsia, third trimester Assessment and Plan 26y/o who is PPD#1 s/p . Post- care -Continue routine care. -Percocet and Motrin PRN pain. -Encouraged OOB. Advised pelvic rest for 6 wks. -Will need a f/u appt. within 6 wks. -Re: ctrl, she would like would like tubal ligation, would like Depo while here -D/c in 1-2 more days. Severe pre-eclampsia, delivered -Continue Mg 24 hours post-, d/c at 1030 today -Follow BPs after d/c Mg, may need scheduled Procardia if elevated dw Dr. Murray (Franco Iyer MD) Attending Attestation Patient seen and examined, discussed with Dr. Iyer. I agree with assessment and management as documented and discussed with me. (Jaja Murray MD) Franco Iyer MD Sep 22, 2017 08:44 Jaja Murray MD Sep 22, 2017 14:46
[2017-09-22] MEDS ORDERED: medroxyPROGESTERone ACETATE SUSP 150 MG/ML SYRINGE IM ONE (09:30)
[2017-09-22] MEDS ORDERED: IBUP1TAB7 PO (09:32)
[2017-09-22] MEDS ORDERED: PERI PO (09:32)
[2017-09-22] MEDS: IBUPROFEN 800 MG TAB PO PRN ×2 (10:08→18:14)
[2017-09-22] MEDS ORDERED: NIFEdipine 20 MG CAP PO ONE (12:00)
[2017-09-22] MEDS: NIFEdipine 10 MG CAP PO SCH ×2 (14:25→20:40)
--- NOTE | 2017-09-22 17:01 | HHI.DCPOC ---
Discharge Care Plan Diagnosis: (1) Preeclampsia (2) care following vaginal delivery Report Symptoms to Your Doctor -Temperature above 100.5 degrees -Redness, of incision or excessive or foul smelling drainage -Unusual pain or calf pain -Increased vaginal bleeding -Painful or difficulty urinating -Feelings of extreme sadness or anxiety after 2 weeks Goals to Promote Your Health * To prevent worsening of your condition and complications * To maintain your health at the optimal level Directions to Meet Your Goals Take your medications as prescribed Follow your dietary instruction Follow activity as directed Ensure plenty of rest for recovery Drink fluids for hydration Keep your appointments as scheduled Take your immunizations and boosters as scheduled If your symptoms worsen call your PCP, if no PCP go to Urgent Care Center or Emergency Room Smoking is Dangerous to Your Health. Avoid second hand smoke Call the 24-hour crisis hotline for domestic abuse at Franco Iyer MD Sep 22, 2017 17:01
[2017-09-22] MEDS: DOCUSATE SODIUM 50 MG/SENNA 8.6 MG TAB PO PRN (18:14)
[2017-09-23] VITALS (7 sets, daily range): BP systolic 139–158; BP diastolic 80–97; PULSE 69–87; RESP 16–18; TEMP 98.4–98.8; O2SAT 97–100
[2017-09-23] MEDS: NIFEdipine 10 MG CAP PO SCH (04:56)
[2017-09-23] MEDS: IBUPROFEN 800 MG TAB PO PRN ×2 (04:57→16:09)
--- NOTE | 2017-09-23 06:29 | HHI.OB ---
Subjective Post Day: 2 Remarks day #2. Blood pressure has been in the 150s systolic and 90s diastolic overnight. Had cramping pain last night and was controlled with medication. Decreased lochia. Denies dysuria. No breast tenderness. She is feeding the baby via breast/bottle. Appetite good. No nausea or vomiting. Endorses flatus. Positive bowel movement. Ambulating well. Denies calf pain, shortness of breath, or cough. Otherwise, she is doing well this morning and has no other complaints. Objective Vitals/I&O Vital Signs Date Time Temp Pulse Resp B/P (MAP) Pulse Ox O2 Delivery O2 Flow Rate FiO2 09/23/17 04:50 98.8 69 18 158/97 (117) 100 09/23/17 01:00 98.4 71 16 152/92 (112) 99 09/22/17 21:50 142/79 (100) 09/22/17 20:57 183/96 (125) 09/22/17 20:30 98.2 66 17 175/91 (119) 99 09/22/17 16:50 74 18 146/84 (104) 09/22/17 15:25 89 18 141/83 (102) 100 09/22/17 13:55 98.1 81 16 154/89 (110) 99 09/22/17 06:35 69 98 09/22/17 06:30 72 98 Objective Remarks GENERAL: Well-nourished, well-developed patient. CARDIOVASCULAR: Regular rate and rhythm without murmurs, gallops, or rubs. RESPIRATORY: Breath sounds equal bilaterally. No accessory muscle use. ABDOMEN/GI: Abdomen soft, non-tender. Fundus: Firm, non-tender at umbilicus. GENITOURINARY: Light to moderate bleeding. EXTREMITIES: No cyanosis or edema, non-tender, without signs of DVT. Medications and IVs Current Medications Medications (Trade) Dose Ordered Sig/Jeannine Route Start Time Stop Time Status Last Admin (Calcium Gluconate Inj) 1 gm UNSCH PRN IV PUSH 09/19/17 12:45 (Tylenol) 650 mg Q4H PRN PO 09/19/17 20:30 09/20/17 02:20 Lactated Ringer's 1,000 ml @ 125 mls/hr Q8H IV 09/20/17 13:31 09/21/17 19:46 Lactated Ringer's 1,000 ml @ 3,000 mls/hr Q20M PRN IV 09/20/17 13:31 09/21/17 09:45 Sodium Chloride 1,000 ml @ 100 mls/hr Q10H PRN IV 09/20/17 13:51 09/21/17 10:13 (Bicitra Liq) 30 ml TANK WELDER PO 09/20/17 13:45 09/24/17 13:44 (Zofran Inj) 4 mg Q6H PRN IV PUSH 09/20/17 13:45 (Muri-Lube Oil) 10 ml UNSCH PRN TOPICAL 09/20/17 13:45 (Pill Splitter) 1 ea UNSCH PRN OTHER 09/20/17 14:30 (NS Flush) 2 ml BID IV FLUSH 09/21/17 21:00 (NS Flush) 2 ml UNSCH PRN IV FLUSH 09/21/17 11:00 (Tylenol) 650 mg Q4H PRN PO 09/21/17 11:00 (Motrin) 800 mg Q8H PRN PO 09/21/17 11:00 09/23/17 04:57 (Percocet 5-325 Mg) 1 tab Q4H PRN PO 09/21/17 11:00 09/22/17 18:13 (Percocet 5-325 Mg) 2 tab Q4H PRN PO 09/21/17 11:00 09/23/17 04:57 (Americaine 20% Top Spr) 1 spray Q4H PRN TOPICAL 09/21/17 11:00 (Tucks Pads) 1 applic QID PRN TOPICAL 09/21/17 11:00 (Marly-Colace) 2 tab Q12H PRN PO 09/21/17 11:00 09/22/17 18:14 (Ambien) 5 mg HS PRN PO 09/21/17 11:00 (Mag-Al Plus Susp Liq) 15 ml Q8H PRN PO 09/21/17 11:00 (Zofran Odt) 4 mg Q6H PRN PO 09/21/17 11:00 (Procardia) 10 mg Q8HR PO 09/22/17 15:00 09/23/17 04:56 Assessment/Plan Problem List: (1) Preeclampsia ICD Codes: O14.90 - Unspecified pre-eclampsia, unspecified trimester Status: Acute Qualifiers: Qualified Codes: O14.93 - Unspecified pre-eclampsia, third trimester Assessment and Plan 26y/o who is PPD#2 s/p . Post- care -Continue routine care. -Percocet and Motrin PRN pain. -Encouraged OOB. Advised pelvic rest for 6 wks. -Will need a f/u appt. within 1-2 weeks with OB provider and then 6 weeks for visit -Re: ctrl, she would like would like tubal ligation, would like Depo while here -D/c home in 1-2 days Severe pre-eclampsia, delivered -Off magnesium for almost 24 hours -Change procardia to 60mg XL once daily Discussed with attending Chandrika Brush MD R2 Sep 23, 2017 06:29
[2017-09-23] MEDS ORDERED: medroxyPROGESTERone ACETATE SUSP 150 MG/ML SYRINGE IM ONE (13:30)
[2017-09-23] MEDS: NIFEdipine 60 MG SUSTAINED RELEASE TAB PO SCH (13:50)
[2017-09-23] MEDS: DOCUSATE SODIUM 50 MG/SENNA 8.6 MG TAB PO PRN (21:07)
[2017-09-23] MEDS: ACETAMINOPHEN 325 MG TAB PO PRN (21:08)
[2017-09-24] VITALS: BP 149/90; PULSE 76; RESP 18; TEMP 98.6; O2SAT 98
[2017-09-24] MEDS: IBUPROFEN 800 MG TAB PO PRN ×2 (00:12→08:25)
[2017-09-24] MEDS ORDERED: medroxyPROGESTERone ACETATE SUSP 150 MG/ML SYRINGE IM ONE (07:15)
[2017-09-24 07:30] VITALS: BP 142/92; PULSE 74; RESP 20; TEMP 98.3
[2017-09-24] MEDS: NIFEdipine 60 MG SUSTAINED RELEASE TAB PO SCH (08:25)
[2017-09-24] MEDS: DOCUSATE SODIUM 50 MG/SENNA 8.6 MG TAB PO PRN (08:25)
[2017-09-24] MEDS ORDERED: NIFE60TA8 PO (08:33)
--- NOTE | 2017-09-24 08:33 | HHI.OB ---
Subjective Post Day: 3 Remarks day #3. Blood pressure has been in the 140s systolic and low 90s diastolic overnight. Pain is well controlled. Decreased lochia. Denies dysuria. No breast tenderness. She is feeding the baby via breast/bottle. Appetite good. No nausea or vomiting. Endorses flatus. Positive bowel movement. Ambulating well. Denies calf pain, shortness of breath, or cough. Otherwise, she is doing well this morning and has no other complaints. Objective Vitals/I&O Vital Signs Date Time Temp Pulse Resp B/P (MAP) Pulse Ox O2 Delivery O2 Flow Rate FiO2 09/24/17 00:00 98.6 76 18 98 09/24/17 00:00 149/90 (109) 09/23/17 21:15 98.4 87 18 139/80 (99) 99 09/23/17 16:30 80 149/89 (109) 09/23/17 13:04 79 18 153/96 (115) 97 Objective Remarks GENERAL: Well-nourished, well-developed patient. CARDIOVASCULAR: Regular rate and rhythm without murmurs, gallops, or rubs. RESPIRATORY: Breath sounds equal bilaterally. No accessory muscle use. ABDOMEN/GI: Abdomen soft, non-tender. Fundus: Firm, non-tender at umbilicus. GENITOURINARY: Light to moderate bleeding. EXTREMITIES: No cyanosis or edema, non-tender, without signs of DVT. Medications and IVs Current Medications Medications (Trade) Dose Ordered Sig/Jeannine Route Start Time Stop Time Status Last Admin (Calcium Gluconate Inj) 1 gm UNSCH PRN IV PUSH 09/19/17 12:45 (Tylenol) 650 mg Q4H PRN PO 09/19/17 20:30 09/23/17 21:08 Lactated Ringer's 1,000 ml @ 125 mls/hr Q8H IV 09/20/17 13:31 09/21/17 19:46 Lactated Ringer's 1,000 ml @ 3,000 mls/hr Q20M PRN IV 09/20/17 13:31 09/21/17 09:45 Sodium Chloride 1,000 ml @ 100 mls/hr Q10H PRN IV 09/20/17 13:51 09/21/17 10:13 (Bicitra Liq) 30 ml LOAN INTERVIEWER PO 09/20/17 13:45 09/24/17 13:44 (Zofran Inj) 4 mg Q6H PRN IV PUSH 09/20/17 13:45 (Muri-Lube Oil) 10 ml UNSCH PRN TOPICAL 09/20/17 13:45 (Pill Splitter) 1 ea UNSCH PRN OTHER 09/20/17 14:30 (NS Flush) 2 ml BID IV FLUSH 09/21/17 21:00 (NS Flush) 2 ml UNSCH PRN IV FLUSH 09/21/17 11:00 (Tylenol) 650 mg Q4H PRN PO 09/21/17 11:00 (Motrin) 800 mg Q8H PRN PO 09/21/17 11:00 09/24/17 08:25 (Percocet 5-325 Mg) 1 tab Q4H PRN PO 09/21/17 11:00 09/22/17 18:13 (Percocet 5-325 Mg) 2 tab Q4H PRN PO 09/21/17 11:00 09/23/17 04:57 (Americaine 20% Top Spr) 1 spray Q4H PRN TOPICAL 09/21/17 11:00 (Tucks Pads) 1 applic QID PRN TOPICAL 09/21/17 11:00 (Marly-Colace) 2 tab Q12H PRN PO 09/21/17 11:00 09/24/17 08:25 (Ambien) 5 mg HS PRN PO 09/21/17 11:00 (Mag-Al Plus Susp Liq) 15 ml Q8H PRN PO 09/21/17 11:00 (Zofran Odt) 4 mg Q6H PRN PO 09/21/17 11:00 (Procardia Xl) 60 mg DAILY PO 09/23/17 09:30 09/24/17 08:25 Assessment/Plan Problem List: (1) Preeclampsia ICD Codes: O14.90 - Unspecified pre-eclampsia, unspecified trimester Status: Acute Qualifiers: Qualified Codes: O14.93 - Unspecified pre-eclampsia, third trimester Assessment and Plan 26y/o who is PPD#3 s/p . Post- care -Continue routine care. -Percocet and Motrin PRN pain. -Encouraged OOB. Advised pelvic rest for 6 wks. -Will need a f/u appt. within 1-2 weeks with OB provider for blood pressure management and then 6 weeks for visit -Re: ctrl, she would like would like tubal ligation, Depo-Provera administered before discharge -D/c home today Severe pre-eclampsia, delivered -Follow up with OB provider in one to 2 weeks for blood pressure management -Discharge home with Procardia 60mg XL once daily Discussed with Dr. Gavin Discharge Planning Discharge home today Chandrika Brush MD R2 Sep 24, 2017 08:33
== END 2017-09-24 12:44 | disposition home or self-care (01) | DRG 775 ==
LOC: HOBED 10:45 → H2EB 12:43 → INTOOBSV 12:57 → OBSVTOIN 12:57 → H2EB 09-20 16:15 → H2EA 09-21 13:14 → H1EA 09-22 13:47
PROVIDERS: ADMIT Obstetrics & Gynecology Maternal & Fetal Medicine; ATTEND Obstetrics & Gynecology Maternal & Fetal Medicine
PROC: 10E0XZZ Delivery of Products of Conception, External Approach (ICD-10-PCS; principal; 2017-09-21)
PROC: 3E0P7VZ Introduction of Hormone into Female Reproductive, Via Natural or Artificial Opening (ICD-10-PCS; 2017-09-21)
PROC: 10907ZC Drainage of Amniotic Fluid, Therapeutic from Products of Conception, Via Natural or Artificial Opening (ICD-10-PCS; 2017-09-21)
PROC: 3E033VJ Introduction of Other Hormone into Peripheral Vein, Percutaneous Approach (ICD-10-PCS; 2017-09-21)
DX: O14.14 Severe pre-eclampsia complicating childbirth (principal); O36.5930 Maternal care for other known or suspected poor fetal growth, third trimester, not applicable or unspecified; O36.8130 Decreased fetal movements, third trimester, not applicable or unspecified; O76 Abnormality in fetal heart rate and rhythm complicating labor and delivery; Z3A.34 34 weeks gestation of pregnancy; Z37.0 Single live birth
CPT/HCPCS: 59025; 76816; 76819; 76820; 76821; 80053; 80307; 81001; 82570; 83615; 84156; 84157; 84550; 85027; 86900; 86901; 87081; 87086; 87150; 88307; 90715; 96365; 96366; 96372; 96375; G0378; G0481; J0702; J1050; J2590; J3010; J3105; J3475; J7030; J7120

== ENCOUNTER 2017-09-27 22:30 | Emergency (ER) | payer MEDICAID ==
[~2017-09-27] VITALS: Ht 162.6 cm; Wt 75.0 kg
[~2017-09-27 22:30] MED LIST changes: -CEPH-460 PO; +IBUP1TAB7 PO; +NIFE60TA8 PO; +PERI PO; -TRICTAB PO
[2017-09-27 22:36] VITALS: BP_SYST 145; BP_SYST 184; BP_DIAS 105; BP_DIAS 72; PULSE 107; PULSE 99; RESP 14; RESP 16; TEMP 98.5; TEMP 99.3; O2SAT 97; O2SAT 99
[2017-09-28 02:30] VITALS: BP 120/74; PULSE 80; RESP 18; O2SAT 99
[2017-09-28] MEDS ORDERED: PANTOPRAZOLE SODIUM 40 MG VIAL IV PUSH ONE (03:00)
[2017-09-28 03:28] LABS: AUTOMATED NEUTROPHIL # 7.4 TH/MM3 (1.8-7.7); BASOPHIL # 0.1 TH/MM3 (0-0.2); BASOPHIL % 0.9 % (0.0-2.0); EOSINOPHIL # 0.2 TH/MM3 (0-0.4); EOSINOPHIL % 1.6 % (0.0-4.0); HEMATOCRIT 35.1 % (35.0-46.0); LYMPH % 25.9 % (9.0-44.0); MEAN CELL VOLUME 82.7 FL (80.0-100.0); MEAN CORPUSCULAR HEMOGLOBIN 28.3 PG (27.0-34.0); MEAN CORPUSCULAR HGB CONC 34.3 % (32.0-36.0); MEAN PLATELET VOLUME 7.6 FL (7.0-11.0); MONOCYTE # 0.8 TH/MM3 (0-0.9); NEUT % 64.6 % (16.0-70.0); PLATELET COUNT 346 TH/MM3 (150-450); RED BLOOD COUNT 4.24 MIL/MM3 (4.00-5.30); WHITE BLOOD COUNT 11.4 TH/MM3 (4.0-11.0)
[2017-09-28 03:45] LABS: BILIRUBIN, URINE NEG (NEG); BLOOD, URINE MOD (NEG); GLUCOSE,URINE NEG (NEG); KETONE, URINE NEG (NEG); MUCUS URINE FEW /lpf (OCC); NITRITE,URINE NEG (NEG); PH, URINE 6.5 (5.0-8.5); SQUAMOUS EPITHELIAL CELL URINE 5 /hpf (0-5); URINE COLOR YELLOW (YELLW/STRAW); URINE LEUKOCYTE ESTERASE SMALL (NEG)
[2017-09-28 03:46] LABS: ALT (GPT) 19 U/L (10-53); AST (GOT) 12 U/L (15-37); BICARBONATE 23.6 MEQ/L (21.0-32.0); BLOOD UREA NITROGEN 16 MG/DL (7-18); CALCIUM 8.7 MG/DL (8.5-10.1); CHLORIDE 106 MEQ/L (98-107); CREATININE 0.66 MG/DL (0.50-1.00); GLOMERULAR FILTRATION RATE 133 ML/MIN (>89); GLUCOSE,RANDOM 88 MG/DL (74-106); SODIUM (NA) 137 MEQ/L (136-145)
[2017-09-28 03:48] LABS: ALKALINE PHOSPHATASE 101 U/L (45-117); TOTAL BILIRUBIN ADULT 0.1 MG/DL (0.2-1.0)
--- NOTE | 2017-09-28 04:24 | PD ---
HPI Chief Complaint: Abdominal Pain Time Seen by Provider: 02:16 Travel History International Travel<30 days: No Contact w/Intl Traveler<30days: No Traveled to known affect area: No History of Present Illness HPI Patient is a 26-year-old female who gave vaginal delivery 4 days ago now she is having right lower quadrant pain going on for 24 hours. Her baby was 35 weeks it is in the NICU at this time. She is pumping and they are breast feeding with breast milk in the baby in the NICU patient denies diarrhea is nauseous and has some mild epigastric pain. Patient has no sick contacts denies upper respiratory infection denies any other symptoms except for focal right lower quadrant pain and mild nausea for bowel since the delivery she has not taken anything for the pain it continues in the ER right lower quadrant pain that is dull achy localized PFSH Past Medical History Autoimmune Disease: No Blood Disorders: No Anxiety: No Depression: No Cardiovascular Problems: No Diminished Hearing: No Gastrointestinal Disorders: No Genitourinary: No Hypertension: Yes (WHEN SHE WAS WITH HER FIRST BABY) Musculoskeletal: No Neurologic: No Psychiatric: No Respiratory: No Immunizations Current: No Sickle Cell Disease: Yes ?: Not : 2 Para: 1 Past Surgical History Surgical History: No Previous Surgery Other Surgery: No Social History Alcohol Use: No Tobacco Use: No Substance Use: No Allergies-Medications (Allergen,Severity, Reaction): Coded Allergies: No Known Allergies (Verified Adverse Reaction, Unknown, 09/27/17) Reported Meds & Prescriptions Reported Meds & Active Scripts Active Colace (Docusate Sodium) 100 Mg Capsule 100 Mg PO BID Ibuprofen 600 Mg Tab 600 Mg PO Q6H PRN Nifedipine ER 24 HR (Nifedipine) 60 Mg Tab 60 Mg PO DAILY Ibuprofen 800 Mg Tab 800 Mg PO Q8H PRN Review of Systems Except as stated in HPI: all other systems reviewed are Neg Physical Exam Narrative GENERAL: Patient is in no obvious distress but seems mildly apprehensive SKIN: Warm and dry. HEAD: Atraumatic. Normocephalic. EYES: Pupils equal and round. No scleral icterus. No injection or drainage. ENT: No nasal bleeding or discharge. Mucous membranes pink and moist. NECK: Trachea midline. No JVD. CARDIOVASCULAR: Regular rate and rhythm. RESPIRATORY: No accessory muscle use. Clear to auscultation. Breath sounds equal bilaterally. GASTROINTESTINAL: Abdomen + focal right lower quadrant tender, nondistended. Hepatic and splenic margins not palpable. No RUQ pain mild epigastric pain MUSCULOSKELETAL: Extremities without clubbing, cyanosis, or edema. No obvious deformities. NEUROLOGICAL: Awake and alert. No obvious cranial nerve deficits. Motor grossly within normal limits. Five out of 5 muscle strength in the arms and legs. Normal speech. PSYCHIATRIC: Appropriate mood and affect; insight and judgment normal. Data Data Last Documented VS Vital Signs Date Time Temp Pulse Resp B/P (MAP) Pulse Ox O2 Delivery O2 Flow Rate FiO2 09/28/17 07:50 09/28/17 07:50 76 18 99 Room Air Orders Orders Complete Blood Count With Diff (09/28/17 02:49) Comprehensive Metabolic Panel (09/28/17 02:49) Lipase (09/28/17 02:49) Pantoprazole Inj (Protonix Inj) (09/28/17 03:00) Urinalysis - C+S If Indicated (09/28/17 03:25) Fentanyl Inj (Fentanyl Inj) (09/28/17 03:30) Ct Abd/Pel W Iv Contrast(Rout) (09/28/17 ) Oral Contrast - Adult (09/28/17 04:26) Diatrizoate Liq ( Gastrosuman Liq) (09/28/17 05:41) Iohexol 350 Inj (Omnipaque 350 Inj) (09/28/17 07:04) Ed Discharge Order (09/28/17 07:36) Labs Laboratory Tests Test 09/28/17 03:19 09/28/17 03:31 White Blood Count 11.4 TH/MM3 Red Blood Count 4.24 MIL/MM3 Hemoglobin 12.0 GM/DL Hematocrit 35.1 % Mean Corpuscular Volume 82.7 FL Mean Corpuscular Hemoglobin 28.3 PG Mean Corpuscular Hemoglobin Concent 34.3 % Red Cell Distribution Width 14.0 % Platelet Count 346 TH/MM3 Mean Platelet Volume 7.6 FL Neutrophils (%) (Auto) 64.6 % Lymphocytes (%) (Auto) 25.9 % Monocytes (%) (Auto) 7.0 % Eosinophils (%) (Auto) 1.6 % Basophils (%) (Auto) 0.9 % Neutrophils # (Auto) 7.4 TH/MM3 Lymphocytes # (Auto) 3.0 TH/MM3 Monocytes # (Auto) 0.8 TH/MM3 Eosinophils # (Auto) 0.2 TH/MM3 Basophils # (Auto) 0.1 TH/MM3 CBC Comment DIFF FINAL Differential Comment Blood Urea Nitrogen 16 MG/DL Creatinine 0.66 MG/DL Random Glucose 88 MG/DL Total Protein 7.0 GM/DL Albumin 3.0 GM/DL Calcium Level 8.7 MG/DL Alkaline Phosphatase 101 U/L Aspartate Amino Transf (AST/SGOT) 12 U/L Alanine Aminotransferase (ALT/SGPT) 19 U/L Total Bilirubin 0.1 MG/DL Sodium Level 137 MEQ/L Potassium Level 4.2 MEQ/L Chloride Level 106 MEQ/L Carbon Dioxide Level 23.6 MEQ/L Anion Gap 7 MEQ/L Estimat Glomerular Filtration Rate 133 ML/MIN Lipase 127 U/L Urine Color YELLOW Urine Turbidity CLEAR Urine pH 6.5 Urine Specific [place] 1.020 Urine Protein 100 mg/dL Urine Glucose (UA) NEG mg/dL Urine Ketones NEG mg/dL Urine Occult Blood MOD Urine Nitrite NEG Urine Bilirubin NEG Urine Urobilinogen LESS THAN 2.0 MG/DL Urine Leukocyte Esterase SMALL Urine RBC 1 /hpf Urine WBC 4 /hpf Urine Squamous Epithelial Cells 5 /hpf Urine Granular Casts 1 /lpf Urine Mucus FEW /lpf Microscopic Urinalysis Comment CULT NOT INDICATED MDM Medical Decision Making Medical Screen Exam Complete: Yes Emergency Medical Condition: Yes Differential Diagnosis rlq pain from muscle strain of vag delivery 4 days ago vs appendicitis , mesenteric adenitis , other GB disease of parity Narrative Course pepcid IV and zofran Still has focal pain RLQ WBC 11.4 need to rule out appendicitis CT negative and safe for D/c with close follow up Diagnosis Primary Impression: Abdominal pain Qualified Codes: R10.31 - Right lower quadrant pain Patient Instructions: Acute Abdominal Pain (ED), General Instructions Scripts Docusate Sodium (Colace) 100 Mg Capsule 100 MG PO BID for Prevent Constipation, #20 CAP 0 Refills Prov: Ciro Vera MD 09/28/17 Ibuprofen (Ibuprofen) 600 Mg Tab 600 MG PO Q6H Y for Pain/Inflammation, #20 TAB 0 Refills Prov: Ciro Vera MD 09/28/17 Disposition: 01 DISCHARGE HOME Condition: Good Ciro Vera MD Sep 28, 2017 04:24
[2017-09-28] MEDS ORDERED: DIATRIZOATE MEGLUM/DIATRIZOATE SOD 9 ML CUP ONE (05:41)
[2017-09-28] MEDS ORDERED: IOHEXOL 350 MG/ML 10 ML VIAL (for RAD DIAG) IVCONTRAST ONE (07:04)
--- NOTE | 2017-09-28 07:24 | RADRPT ---
EXAM DATE/TIME: 09/28/2017 06:58 [facility] COMPARISON: No previous studies available for comparison. INDICATIONS : Right lower quadrant pain 7days post IV CONTRAST: 86 cc Omnipaque 350 (iohexol) IV ORAL CONTRAST: No oral contrast ingested. RADIATION DOSE: 6.84 CTDIvol (mGy) MEDICAL HISTORY : Hypertension. SURGICAL HISTORY : None. ENCOUNTER: Initial ACUITY: 1 day PAIN SCALE: 6/10 LOCATION: Right lower quadrant TECHNIQUE: Volumetric scanning of the abdomen and pelvis was performed. Using automated exposure control and ad justment of the mA and/or kV according to patient size, radiation dose was kept as low as reasonably achievable to obtain optimal diagnostic quality images. DICOM format image data is available electro nically for review and comparison. FINDINGS: LOWER LUNGS: The visualized lower lungs are clear. LIVER: Homogeneous density without lesion. There is no dilation of the biliary tree. No calcified gallston es. SPLEEN: Normal size without lesion. PANCREAS: Within normal limits. KIDNEYS: Normal in size and shape. There is no mass, stone or hydronephrosis. Subcentimeter right renal low d ensity likely cyst. ADRENAL GLANDS: Within normal limits. VASCULAR: There is no aortic aneurysm. BOWEL/MESENTERY: The stomach, small bowel, and colon demonstrate no acute abnormality. There is no free intraperitone al air or fluid. Appendix normal. ABDOMINAL WALL: Within normal limits. RETROPERITONEUM: There is no lymphadenopathy. BLADDER: No wall thickening or mass. REPRODUCTIVE: Enlarged uterus. No endometrial air or fluid collection seen. INGUINAL: There is no lymphadenopathy or hernia. MUSCULOSKELETAL: Within normal limits for patient age. CONCLUSION: 1. Enlarged uterus consistent with state. 2. No acute inflammatory process. 3. Normal appendix 4. Subcentimeter right renal density likely benign cyst. Wilfred Cruz MD on September 28, 2017 at 7:20 Board Certified Radiologist. This report was verified electronically.
[2017-09-28] MEDS ORDERED: IBUP-232 PO (07:38)
[2017-09-28] MEDS ORDERED: COLA100C5 PO (07:41)
[2017-09-28 07:50] VITALS: BP 118/72; PULSE 76; RESP 18; O2SAT 99
== END 2017-09-28 08:14 | disposition home or self-care (01) ==
LOC: NEPE 22:30
DX: O99.89 Other specified diseases and conditions complicating pregnancy, childbirth and the puerperium (principal); R10.31 Right lower quadrant pain
CPT/HCPCS: 74177; 80053; 81001; 83690; 85025; 96374; 99285; C9113; Q9963; Q9967

== ENCOUNTER 2017-11-03 23:22 | Emergency (ER) | payer MEDICAID ==
[~2017-11-03] VITALS: Ht 162.6 cm; Wt 75.0 kg
[~2017-11-03 23:22] MED LIST changes: +COLA100C5 PO; +IBUP-232 PO; -PERI PO
[2017-11-03 23:29] VITALS: BP 154/96; PULSE 109; RESP 18; TEMP 98.2; O2SAT 98
[2017-11-04 00:09] VITALS: BP 141/102; PULSE 98; RESP 16; O2SAT 100
--- NOTE | 2017-11-04 00:21 | PD ---
HPI Chief Complaint: Headache Time Seen by Provider: 00:15 Travel History International Travel<30 days: No Contact w/Intl Traveler<30days: No Traveled to known affect area: No History of Present Illness HPI Patient is a 27-year-old female presents emergency department for evaluation of headache bifrontal. Patient states she has had a headache for past couple of days. She states that she is almost 7 weeks and was diagnosed with preeclampsia. Denies any leg swelling denies any visual difficulties. States the headache is moderate, bifrontal, context as above, no nausea no vomiting associated signs symptoms as above. PFSH Past Medical History Autoimmune Disease: No Blood Disorders: No Anxiety: No Depression: No Cardiovascular Problems: No Diminished Hearing: No Gastrointestinal Disorders: No Genitourinary: No Hypertension: Yes (WHEN SHE WAS WITH HER FIRST BABY) Musculoskeletal: No Neurologic: No Psychiatric: No Respiratory: No Immunizations Current: No Sickle Cell Disease: Yes Tetanus Vaccination: Unknown Influenza Vaccination: Yes ?: Not LMP: : 2 Para: 1 Past Surgical History Surgical History: No Previous Surgery Other Surgery: No Social History Alcohol Use: No Tobacco Use: No Substance Use: No Allergies-Medications (Allergen,Severity, Reaction): Coded Allergies: No Known Allergies (Verified Adverse Reaction, Unknown, 09/27/17) Reported Meds & Prescriptions Reported Meds & Active Scripts Active Nifedipine ER 24 HR (Nifedipine) 60 Mg Tab 60 Mg PO DAILY Review of Systems Except as stated in HPI: all other systems reviewed are Neg Physical Exam Narrative GENERAL: Well-developed well-nourished, no obvious distress SKIN: Focused skin assessment warm/dry. HEAD: Atraumatic. Normocephalic. EYES: Pupils equal and round. No scleral icterus. No injection or drainage. ENT: No nasal bleeding or discharge. Mucous membranes pink and moist. NECK: Trachea midline. No JVD. CARDIOVASCULAR: Regular rate and rhythm. No murmur appreciated. RESPIRATORY: No accessory muscle use. Clear to auscultation. Breath sounds equal bilaterally. GASTROINTESTINAL: Abdomen soft, non-tender, nondistended. Hepatic and splenic margins not palpable. MUSCULOSKELETAL: No obvious deformities. No clubbing. No cyanosis. No edema. NEUROLOGICAL: Awake and alert. Cranial nerves II through XII grossly intact and nonfocal, 5 out of 5 strength in all 4 extremities. PSYCHIATRIC: Appropriate mood and affect; insight and judgment normal. Data Data Last Documented VS Vital Signs Date Time Temp Pulse Resp B/P (MAP) Pulse Ox O2 Delivery O2 Flow Rate FiO2 11/04/17 02:18 11/04/17 01:53 90 18 99 Room Air 11/03/17 23:29 98.2 Orders Orders Diphenhydramine (Benadryl) (11/04/17 00:30) Prochlorperazine Maleate (Compazine) (11/04/17 00:30) Ketorolac Inj (Toradol Inj) (11/04/17 00:30) Ed Discharge Order (11/04/17 01:44) MDM Medical Decision Making Medical Screen Exam Complete: Yes Emergency Medical Condition: Yes Differential Diagnosis Headache, cluster headache, migraine headache, preeclampsia highly unlikely. Narrative Course Patient room to the emergency department, appears comfortable, her only symptoms in signs for preeclampsia are limited blood pressure and headache. She is almost 7 weeks and the likely of schumacher of her symptoms being from preeclampsia seems very unlikely. She given headache cocktail and is feeling better. Discussed need follow-up with a primary care physician and return to ED criteria. She stable for discharge. Diagnosis Primary Impression: Headache Disposition: 01 DISCHARGE HOME Condition: Stable Froylan Bishop MD Nov 04, 2017 00:21
[2017-11-04] MEDS ORDERED: diphenhydrAMINE HCL 25 MG CAP PO ONE (00:30)
[2017-11-04] MEDS ORDERED: KETOROLAC TROMETHAMINE 60 MG/2 ML (IM) VIAL IM ONE (00:30)
[2017-11-04] MEDS ORDERED: PROCHLORPERAZINE MALEATE 10 MG TAB PO ONE (00:30)
[2017-11-04 01:53] VITALS: BP 132/82; PULSE 90; RESP 18; O2SAT 99
== END 2017-11-04 02:19 | disposition home or self-care (01) ==
LOC: NEPE 23:22
DX: R51 Headache (principal)
CPT/HCPCS: 96372; 99283; J1885; Q0164

== ENCOUNTER 2017-12-14 20:24 | Emergency (ER) | payer MEDICAID ==
[~2017-12-14] VITALS: Ht 162.6 cm; Wt 72.5 kg
[~2017-12-14 20:24] MED LIST changes: -COLA100C5 PO; -IBUP-232 PO; -IBUP1TAB7 PO
[2017-12-14 20:42] VITALS: BP 166/100; PULSE 101; RESP 15; TEMP 99.7; O2SAT 99
--- NOTE | 2017-12-14 21:07 | PD ---
HPI Chief Complaint: ENT Complaint Time Seen by Provider: 20:53 Travel History International Travel<30 days: No Contact w/Intl Traveler<30days: No Traveled to known affect area: No History of Present Illness HPI 27-year-old black female presents with a 2 day history of sore throat and ear pain. She denies any fever chills. No congestion, cough, shortness of breath, nausea, vomiting, diarrhea, dysuria frequency. She states her symptoms are moderate. Worse with swallowing. No alleviating factors. Denies . PFSH Past Medical History Medical History: Denies Significant Hx Autoimmune Disease: No Blood Disorders: No Anxiety: No Depression: No Cardiovascular Problems: No Diminished Hearing: No Gastrointestinal Disorders: No Genitourinary: No Hypertension: Yes (WHEN SHE WAS WITH HER FIRST BABY) Musculoskeletal: No Neurologic: No Psychiatric: No Respiratory: No Immunizations Current: No Sickle Cell Disease: Yes Tetanus Vaccination: < 5 Years Influenza Vaccination: Yes ?: Not LMP: 11/08/17 : 2 Para: 1 Past Surgical History Surgical History: No Previous Surgery Other Surgery: No Social History Alcohol Use: No Tobacco Use: No Substance Use: No Allergies-Medications (Allergen,Severity, Reaction): Coded Allergies: No Known Allergies (Verified Adverse Reaction, Unknown, 12/14/17) Reported Meds & Prescriptions Reported Meds & Active Scripts Active Amoxicillin 500 Mg Tab 500 Mg PO BID 10 Days Nifedipine ER 24 HR (Nifedipine) 60 Mg Tab 60 Mg PO DAILY Review of Systems Except as stated in HPI: all other systems reviewed are Neg Physical Exam Narrative GENERAL: Well-developed, well-nourished in no acute distress. Nontoxic appearing. HEAD: Normocephalic, atraumatic. EYES: Pupils equal round and reactive. Extraocular motions intact. No scleral icterus. No injection or drainage. ENT: TMs clear without erythema. The external auditory canals clear. Nose: clear . Posterior pharynx is mildly erythematous and moist. Mild tonsillar edema with a scant amount of white exudate.. Uvula midline. Airway patent. NECK: Trachea midline.Supple, nontender, moves head freely. No central bony tenderness or spasm. CARDIOVASCULAR: Regular rate and rhythm without murmurs, gallops, or rubs. RESPIRATORY: Clear to auscultation. Breath sounds equal bilaterally. No wheezes , rales, or rhonchi. GASTROINTESTINAL: Abdomen soft, non-tender, nondistended. No hepato-splenomegaly , or palpable masses. No guarding. EXTREMITIES: No clubbing, cyanosis, or edema. No joint tenderness, effusion, or edema noted. BACK: Nontender without deformity or crepitance. No flank tenderness. Data Data Last Documented VS Vital Signs Date Time Temp Pulse Resp B/P (MAP) Pulse Ox O2 Delivery O2 Flow Rate FiO2 12/14/17 20:42 99.7 101 15 166/100 (122) 99 Orders Orders Group A Rapid Strep Screen (12/14/17 20:28) Ed Discharge Order (12/14/17 22:25) Amoxicillin (Trimox) (12/14/17 22:30) MDM Medical Decision Making Medical Screen Exam Complete: Yes Emergency Medical Condition: Yes Medical Record Reviewed: Yes Interpretation(s) Rapid strep: Positive Differential Diagnosis MDM: High Differential diagnoses: Strep throat, viral pharyngitis, mono, peritonsillar abscess, retropharyngeal abscess, Fred's angina Narrative Course Patient's rapid strep was positive. Patient is given amoxicillin 500 mg p.o. This is strep pharyngitis Diagnosis Primary Impression: Strep pharyngitis Patient Instructions: General Instructions Departure Forms: Tests/Procedures, Work Release Special Instructions: No work 2 days Additional Instructions: Rest. Force fluids. Saltwater gargles. Tylenol and Advil. Chloraseptic [place] Cepastat lozenge. Amoxicillin. Follow-up with a primary care doctor in one week. Return to the ER if any problems. Med/Other Pt SpecificInfo: Prescription(s) given Scripts Amoxicillin (Amoxicillin) 500 Mg Tab 500 MG PO BID for Infection for 10 Days, #20 TAB 0 Refills Prov: Froylan Bishop MD 12/14/17 Disposition: 01 DISCHARGE HOME Condition: Stable Tawanda Kathleen Dec 14, 2017 21:07
[2017-12-14] MEDS ORDERED: AMOX500T PO (22:26)
[2017-12-14] MEDS ORDERED: AMOXICILLIN (TRIHYDRATE) 500 MG CAP PO ONE (22:30)
== END 2017-12-14 22:37 | disposition home or self-care (01) ==
LOC: NEPD 20:24
DX: J02.0 Streptococcal pharyngitis (principal); H92.09 Otalgia, unspecified ear; I10 Essential (primary) hypertension; D57.1 Sickle-cell disease without crisis; Z79.899 Other long term (current) drug therapy
CPT/HCPCS: 87880; 99283